=== PATIENT | female | born 1960 | race Caucasian/White ===

== ENCOUNTER 2018-01-25 23:12 | Inpatient (IN) | payer OTHER ==
[~2018-01-25] VITALS: Ht 170.2 cm; Wt 174.6 kg
--- NOTE | 2018-01-25 23:43 | ED GI/GU/ABDOMINAL COMPLAINT ---
History of Present Illness General Chief Complaint: Abdominal Pain/Flank Pain Stated Complaint: ABD PAIN, VOMITING, DIABETIC, SUGAR IS 280 PE Source: patient Exam Limitations: no limitations Vital Signs & Intake/Output Vital Signs & Intake/Output Vital Signs Date Time Temp Pulse Resp B/P B/P Pulse O2 O2 Flow FiO2 Mean Ox Delivery Rate 01/25 2322 99.5 113 24 163/76 96 ED Intake and Output 01/26 0000 01/25 1200 Intake Total Output Total Balance Patient 385 lb Weight Weight Reported by Patient Measurement Method Allergies Coded Allergies: adhesive (REDNESS PER PT 01/25/18) morphine (SENSITIVE PER PT TO STOMACH 01/25/18) Triage Note: PT PRESENTS TO THE ER C/O VOMITTING AND ABD PAIN.. PT STATES THAT SHE HAS BEEN VOMITTING SINCE YESTERDAY AFTERNOON.. PT STATES THAT SHE CANT EVEN KEEP FLUIDS DOWN.. PT STATES THAT HER VOMIT IS BILE.. PT ALSO C/O HX OF DM. PT STATES THAT HER BLOOD SUGAR AT HOME WAS 287. PT STATES THAT SHE HAS DIFF BREATHING AND PT IS C/O SOB ON EX.. PT STATES I FELL SO WEAK.. PT ALSO C/O ABD PAIN 12/16 AND PER PT THE PAIN IS WORSE WHEN SHE VOMITS.. PT STATES THAT SHE HAS NOT HAD A BM SINCE SUNDAY. Triage Nurses Notes Reviewed? yes ? n Is pt currently ? No Onset: Gradual Duration: day(s): Timing: recent history Location: generalized abdomen Radiation: no radiation Modifying Factors: Worsens With: vomiting. Associated Symptoms: abdominal pain, nausea/vomiting HPI: 57 yo woman h/o diabetes, htn, obesity presents with abdominal pain and bilious vomiting that began yesterday. "Everything I drink, it just comes right back up." She notes a watery stool yesterday, and last passed flatus approximately 7-8 hours ago. She notes tactile temperatures. She has no dysuria, cough, chest pain, dyspnea. She is otherwise well. Past History Travel History Traveled to [place] past 21 day No Medical History Any Pertinent Medical History? see below for history Cardiovascular: hypertension, HLD Respiratory: bronchitis, obstructive sleep apnea, pneumonia, pulmonary hypertension Gastrointestinal: GERD Musculoskeletal: rheumatoid arthritis Endocrine: diabetes Blood Disorders: anemia Surgical History Surgical History: cholecystectomy Psychosocial History What is your primary language Malian Tobacco Use: Never used Family History Hx Contributory? No Review of Systems Review of Systems Constitutional: Reports: no symptoms. EENTM: Reports: no symptoms. Respiratory: Reports: no symptoms. Cardiovascular: Reports: no symptoms. GI: Reports: no symptoms. Genitourinary: Reports: no symptoms. Musculoskeletal: Reports: no symptoms. Skin: Reports: no symptoms. Neurological/Psychological: Reports: no symptoms. Hematologic/Endocrine: Reports: no symptoms. Immunologic/Allergic: Reports: no symptoms. All Other Systems: Reviewed and Negative Physical Exam Physical Exam General Appearance: well developed/nourished, mild distress Head: atraumatic, normal appearance Eyes: Bilateral: normal appearance. Ears, Nose, Throat, Mouth: hearing grossly normal, moist mucous membrane Neck: normal inspection, supple, full range of motion Respiratory: normal breath sounds, chest non-tender, no respiratory distress, quiet respiration, lungs clear Cardiovascular: regular rate/rhythm Gastrointestinal: soft, obese, diminished bowel sounds Back: normal inspection, normal range of motion Extremities: normal range of motion Neurologic/Psych: no motor/sensory deficits, awake, alert, oriented x 3 Skin: intact, normal color, warm/dry Core Measures ACS in differential dx? No Sepsis Present: No Sepsis Focused Exam Completed? No Progress Differential Diagnosis: bowel obstruction, gastritis, hepatitis Plan of Care: Orders Procedure Date/time Status Nothing by Mouth 01/26 B Active Saline Lock 01/26 137 Active Misc Message 01/26 137 Active ED Holding Orders 01/26 137 Active Admit to inpatient 01/26 137 Active Vital Signs 01/26 137 Active Code Status 01/26 137 Active Add-on Test (ER Only) 01/26 0115 Active TRIGLYCERIDES 01/25 2349 Complete ETHANOL 01/25 2349 Complete TROPONIN LEVEL 01/25 2324 Complete LIPASE 01/25 232 Complete HEPATIC FUNCTION PANEL 01/25 232 Complete CBC WITHOUT DIFFERENTIAL 01/25 232 Complete BASIC METABOLIC PANEL 01/25 232 Complete AMYLASE 01/25 2324 Complete EKG 01/25 2324 Active EKG 01/25 2324 Active Current Medications Sig/Jayne Start time Last Medication Dose Stop Time Status Admin Sodium Chloride 1,000 ML BOLUS ONE 01/26 0045 AC 01/26 (Normal Saline 0.9%) 01/26 0144 0102 Laboratory Tests 01/25/18 2349: Anion Gap 15, Estimated GFR > 60, BUN/Creatinine Ratio 16.0, Glucose 247 H, Calcium 9.4, Total Bilirubin 0.8, Direct Bilirubin 0.1, AST 26, ALT 35, Alkaline Phosphatase 100, Troponin I < 0.01, Total Protein 6.9, Albumin 4.0, Triglycerides 67, Amylase 72, Lipase 829 H, CBC w Diff MAN DIFF ORDERED, RBC 5.28, MCV 76.6 L, MCH 25.4 L, MCHC 33.1, RDW 15.4 H, MPV 9.2, Gran % 89.6 H, Lymphocytes % 4.8 L, Monocytes % 5.3, Eosinophils % 0.3, Basophils % 0, Absolute Granulocytes 13.7 H, Absolute Lymphocytes 0.7 L, Absolute Monocytes 0.8 H, Absolute Eosinophils 0, Absolute Basophils 0, Platelet Estimate ADEQUATE , Normocytic RBCs VERIFIED, Normochromic RBCs VERIFIED, Serum Alcohol < 10.0 Diagnostic Imaging: Viewed by Me: CT Scan. Discussed w/RAD: CT Scan. Radiology Impression: PATIENT: FRANCA ESPINOZA PRESENT AGE: 57 PATIENT ACCOUNT NO: [id number] : 62 LOCATION: [facility] ORDERING PHYSICIAN: Bora Vásquez MD SERVICE DATE: 01/25/18 EXAM TYPE: CAT - CT ABD & PELVIS W/O IV CONTRAS EXAMINATION: CT ABDOMEN AND PELVIS WITHOUT CONTRAST CLINICAL INFORMATION: Abdominal pain, vomiting COMPARISON: 06/08/2014 TECHNIQUE: Multidetector volumetric imaging was performed from the superior aspect of the liver through the pubic symphysis. Sagittal and coronal reformatted images were obtained on the technologist's workstation. DLP: 1635.40 mGy-cm FINDINGS: LUNG BASES: There is linear left basilar atelectasis. LIVER, GALLBLADDER, AND BILIARY TREE: The liver is enlarged, measuring approximately 22 cm in craniocaudal dimension. No focal hepatic lesion or biliary ductal dilatation is identified. Patient is status post cholecystectomy. PANCREAS: There is mild stranding adjacent to the distal pancreas, raising suspicion for pancreatitis. SPLEEN: Unremarkable. ADRENAL GLANDS: Unremarkable. KIDNEYS AND URETERS: The kidneys are normal in size, shape, and attenuation. No hydronephrosis, hydroureter, or calculi seen. No perinephric stranding. BLADDER: Unremarkable. GASTROINTESTINAL TRACT: Colonic diverticulosis is noted. The small and large bowel are otherwise unremarkable without evidence of obstruction or pericolonic inflammatory change. The appendix is unremarkable. No free fluid or free air is seen. ABDOMINAL WALL: No significant hernia is appreciated. LYMPH NODES: Normal. VASCULAR: Unremarkable. PELVIC VISCERA: Unremarkable. OSSEOUS STRUCTURES: Degenerative changes are noted in the spine. IMPRESSION: 1. Mild stranding adjacent to the distal pancreas, suspicious for pancreatitis. 2. Hepatomegaly. 3. Colonic diverticulosis. DICTATED BY: Bud Day MD DATE/ TIME DICTATED:01/26/1818 WEIGHMASTER LEAD:JUAN DATE/TIME TRANSCRIBED: 01/26/1818 CONFIDENTIAL, DO NOT COPY WITHOUT APPROPRIATE AUTHORIZATION. < Electronically signed in Other Vendor System> SIGNED BY: Bud Day MD 01/26/18 003 Initial ED EKG: nsr w/pac's, no acute changes Departure Departure Disposition: HOME OR SELF CARE Condition: Stable Clinical Impression Primary Impression: Abdominal pain Referrals: Jarad Galicia MD (PCP/Family) Departure Forms: Customer Survey General Discharge Information Admission Note Spoke With: Medardo Hdz MD Documentation of Exam: Documentation of any treatments & extenuating circumstances including Concerns Regarding Discharge (functional status, medication knowledge or non-compliance, living conditions, etc.) that warrant an admission rather than observation: pt with unrelenting vomiting in the context of ct scan and lab evidence of pancreatitis... merits iv fluids, bowel rest, supportive medications. ED Attending Observation Initial Observation Note: I have seen and personally examined FRANCA ESPINOZA on 01/25/18 at 2347. I agree with the current emergency department documentation. The disposition (admission or discharge) is uncertain at this time, she needs a period of observation for the following reason(s): The ED Nurse caring for this patient has been personally informed as to what the patient is being observed for.
[2018-01-26 00:17] LABS: ABSOLUTE BASOPHIL COUNT 0 /CUMM (0.0-0.2); ABSOLUTE EOSINOPHIL COUNT 0 /CUMM (0.0-0.7); ABSOLUTE GRANULOCYTE CT 13.7 /CUMM (1.4-6.5); ABSOLUTE LYMPH COUNT 0.7 /CUMM (1.2-3.4); ABSOLUTE MONOCYTE COUNT 0.8 /CUMM (0.10-0.60); BASOPHIL % 0 % (0.0-2.0); EOSINOPHIL % 0.3 % (0-5); GRANULOCYTE % 89.6 % (42.2-75.2); HEMATOCRIT 40.4 % (37-47); MEAN CORPUSCULAR HGB 25.4 PG (27.0-31.0); MEAN CORPUSCULAR HGB CONC 33.1 G/DL (33.0-37.0); MEAN CORPUSCULAR VOLUME 76.6 FL (81.0-99.0); MEAN PLATELET VOLUME 9.2 FL (7.4-10.4); PLATELET COUNT 258 /CUMM (130-400); RBC DISTRIBUTION WIDTH 15.4 % (11.5-14.5); RED BLOOD CELL CT 5.28 /CUMM (4.20-5.40); WHITE BLOOD CELL COUNT 15.2 /CUMM (4.8-10.8)
--- NOTE | 2018-01-26 00:32 | CT SCAN REPORT ---
EXAMINATION: CT ABDOMEN AND PELVIS WITHOUT CONTRAST CLINICAL INFORMATION: Abdominal pain, vomiting COMPARISON: 06/08/2014 TECHNIQUE: Multidetector volumetric imaging was performed from the superior aspect of the liver through the pubic symphysis. Sagittal and coronal reformatted images were obtained on the technologist's workstation. DLP: 1635.40 mGy-cm FINDINGS: LUNG BASES: There is linear left basilar atelectasis. LIVER, GALLBLADDER, AND BILIARY TREE: The liver is enlarged, measuring approximately 22 cm in craniocaudal dimension. No focal hepatic lesion or biliary ductal dilatation is identified. Patient is status post cholecystectomy. PANCREAS: There is mild stranding adjacent to the distal pancreas, raising suspicion for pancreatitis. SPLEEN: Unremarkable. ADRENAL GLANDS: Unremarkable. KIDNEYS AND URETERS: The kidneys are normal in size, shape, and attenuation. No hydronephrosis, hydroureter, or calculi seen. No perinephric stranding. BLADDER: Unremarkable. GASTROINTESTINAL TRACT: Colonic diverticulosis is noted. The small and large bowel are otherwise unremarkable without evidence of obstruction or pericolonic inflammatory change. The appendix is unremarkable. No free fluid or free air is seen. ABDOMINAL WALL: No significant hernia is appreciated. LYMPH NODES: Normal. VASCULAR: Unremarkable. PELVIC VISCERA: Unremarkable. OSSEOUS STRUCTURES: Degenerative changes are noted in the spine. IMPRESSION: 1. Mild stranding adjacent to the distal pancreas, suspicious for pancreatitis. 2. Hepatomegaly. 3. Colonic diverticulosis.
--- NOTE | 2018-01-26 02:12 | History & Physical ---
Adelina DE LA TORRE,Allan 01/26/18 0210: General Information and HPI MD Statement: I have seen and personally examined FRANCA ESPINOZA and documented this H&P. The patient is a 57 year old F who presented with a patient stated chief complaint of [pancreatitis]. Source of Information: patient, old records Exam Limitations: no limitations History of Present Illness: Patient is a 57-year-old female with significant past medical history of rheumatoid arthritis, diabetes, sleep apnea on CPAP, menopausal, presented with chief complaints of nausea and vomiting since last 24 hours. Patient was relatively alright around 1 day ago. Yesterday around 1230,she started throwing up. She was not able to tolerate any kind of liquids and solid. At midnight she started having pain in her belly, which was located in the epigastrium, generalized, intermittent, sometimes radiating to back, associated with bloated feeling, relieved by vomiting. Denies any fever, chills, trauma, sick contact, any new medication, using any wcxq-cjv-nuhhnal medication, presents of blood in the vomitus, weight loss. She also had low-grade fever 100 - 101. She did not took any medication She was feeling very weak, and color of her vomitus become more greenish and bilious, so she was here. She had history of cholecystectomy(1991; secondary to cholecystitis). She had family history of pancreatic cancer in her mother, hypertriglyceridemia in all her family, she was in [facility], which can possibly cause pancreatitis.She recently had an allergic reaction secondary to morbid in her air conditioner but did not require any steroid medication. Past medical history - GERD -last 10 years on Protonix. Intermittent constipation. L4 L5 S1, S2. Discectomy/laminectomy 2 times Bilateral knee replacement. Vestibular migraine. Rheumatoid arthritis since last 5 years on hydroxychloroquine. Diabetes mellitus since 2005. Her HbA1c 7.2 Sleep apnea on CPAP since last 20 years, complicated by secondary pulmonary hypertension History of abdominal hernia unrepaired. History of removal of fibroid. Menopause since 2 years. History of bronchitis, treated with corticosteroid(August 2016) Family history-mother/ elderly sister has history of rheumatoid arthritis, mother with history of pancreatic cancer at the age of 79, brother with history of COPD Past History Travel History Traveled to [place] past 21 day No Medical History Cardiovascular: hypertension, HLD Respiratory: bronchitis, obstructive sleep apnea, pneumonia, pulmonary hypertension Gastrointestinal: GERD Musculoskeletal: rheumatoid arthritis Endocrine: diabetes Blood Disorders: anemia Surgical History Surgical History: cholecystectomy Review of Systems Review of Systems Constitutional: Reports: fever, malaise, weakness. GI: Reports: abdominal pain, bloating, distention, nausea, vomiting. Musculoskeletal: Reports: back pain, joint pain. Exam & Diagnostic Data Last 24 Hrs of Vital Signs/I&O Vital Signs Date Time Temp Pulse Resp B/P B/P Pulse O2 O2 Flow FiO2 Mean Ox Delivery Rate 01/26 0327 Room Air 01/26 0144 98.7 88 18 168/84 94 Room Air 01/25 2322 99.5 113 24 163/76 96 Intake & Output 01/26 0800 01/26 0000 01/25 1600 Intake Total Output Total Balance Patient 174.633 kg 174.633 kg Weight Weight Reported by Patient Reported by Patient Measurement Method Physical Exam General Appearance Alert, Oriented X3, Cooperative, No Acute Distress Skin No Rashes, No Breakdown, No Significant Lesion HEENT Atraumatic, PERRLA, EOMI Neck No JVD Cardiovascular Normal S1, Normal S2 Lungs Clear to Auscultation, Normal Air Movement Abdomen Normal Bowel Sounds, Soft, mild deep tenderness in upper abdoman Neurological Normal Gait, Normal Speech Extremities No Clubbing, No Cyanosis, No Edema Vascular Normal Pulses, Pulses Symmetrical Last 24 Hrs of Labs/Luis: Laboratory Tests 01/25/18 2349: Anion Gap 15, Estimated GFR > 60, BUN/Creatinine Ratio 16.0, Glucose 247 H, Lactic Acid 1.2, Calcium 9.4, Total Bilirubin 0.8, Direct Bilirubin 0.1, AST 26, ALT 35, Alkaline Phosphatase 100, Troponin I < 0.01, Total Protein 6.9, Albumin 4.0, Triglycerides 67, Cholesterol 150, LDL Cholesterol, Calc 66, HDL Cholesterol 71 H, Cholesterol/HDL Ratio 2, Amylase 72, Lipase 829 H, CBC w Diff MAN DIFF ORDERED, RBC 5.28, MCV 76.6 L, MCH 25.4 L, MCHC 33.1, RDW 15.4 H, MPV 9.2, Gran % 89.6 H, Lymphocytes % 4.8 L, Monocytes % 5.3, Eosinophils % 0.3, Basophils % 0, Absolute Granulocytes 13.7 H, Absolute Lymphocytes 0.7 L, Absolute Monocytes 0.8 H, Absolute Eosinophils 0, Absolute Basophils 0, Platelet Estimate ADEQUATE, Normocytic RBCs VERIFIED, Normochromic RBCs VERIFIED , Serum Alcohol < 10.0 Assessment/Plan Assessment: Patient is a 57-year-old female with significant past medical history of rheumatoid arthritis, diabetes, sleep apnea on CPAP, menopausal, presented with chief complaints of nausea and vomiting since last 24 hours. Vital signs at the time of admission -temperature 99.5, pulse 113, respiratory rate 24, blood pressure 160/76, SPO2 96% on room air. Blood workup-WBC 15.2, RBC 5.28, hemoglobin 13.4, hematocrit 40.5, MCV 76.6, platelet count 258, granulocyte 89.6, lymphocyte 4.8, sodium 135, potassium 4.5, chloride 95, anion gap 15, BUN 8, creatinine 0.5, glucose 247, calcium 9.4, total bilirubin 0.8, direct bilirubin 0.1, AST 26, ALT 35, troponin I less than 0.01, amylase 72, lipase 829, serum alcohol less than 10. CT abdomen and pelvis- 1. Mild stranding adjacent to the distal pancreas, suspicious for pancreatitis. 2. Hepatomegaly. 3. Colonic diverticulosis. Assessment and plan - Mild acute pancreatitis - * We'll keep patient nothing by mouth * IV fluids normal saline 100 mL per hour. * Pain medication according to the pain scale -acetaminophen 1 gram IV for mild pain, Dilaudid 1 milligram every 6 P for moderate pain, and we will consider morphine if needed for severe pain. * Blood sugar charting every 6 hourly. * NovoLog according to the sliding scale. * Keep head end of the bed elevated. * Inj pantoprazole 40 mgs IV OD * Injection Zofran 4 milligrams every 6 P * We will repeat EKG in the morning * we will follow lipid profile, lactic acid Obstructive sleep apnea on CPAP - * Continue CPAP over the night Type 2 diabetes- * Blood sugar charting every 6 hourly. * NovoLog according to the sliding scale. Chronic medical condition-hypertension, hyperlipidemia, rheumatoid arthritis * We will hold the medication for now and will restart from morning. Morbid obesity - * We'll discuss about diet after recovery CODE STATUS-full code. Diet-nothing by mouth DVT prophylaxis-ALP S As Ranked By This Provider Problem List: 1. Abdominal pain 2. Pancreatitis Core Measures/Misc (03/25) Acute Coronary Syndrome ACS Diagnosis: No Congestive Heart Failure Congestive Heart Failure Diagnosis No Cerebrovascular Accident CVA/TIA Diagnosis: No VTE (View Protocol) VTE Risk Factors Age>40 No Mechanical VTE Prophylaxis d/t N/A MechProphylax Ordered No VTE Pharm Prophylaxis d/t NA PharmProphylax ordered Sepsis (View protocol) Sepsis Present: No If YES complete Sepsis Event Note If YES complete Sepsis Event Note Antwon Yeager 01/26/18 0520: General Information and HPI MD Statement: I have seen and personally examined FRANCA ESPINOZA and documented this H&P. The patient is a 57 year old F who presented with a patient stated chief complaint of [pancreatitis]. Source of Information: patient, family Exam Limitations: no limitations History of Present Illness: Patient is a 57-year-old female with past medical history of RA, diabetes, sleep apnea on CPAP, menopausal, presented with chief complaints of nausea and vomiting since last 24 hours. in her air conditioner but did not require any steroid medication. Patient wasin normal state of health until yesterday around 1230 when she began vomiting. She was not able to tolerate any kind of liquids and solid. At midnight she started having pain in her abdomen, which was located in the epigastrium, generalized, intermittent, sometimes radiating to back, associated with bloated feeling, relieved by vomiting. Denies any fever, chills, trauma, sick contact, any new medication, using any lvsd-dmm-lpithzn medication, presents of blood in the vomitus, weight loss. She also had low-grade fever 100 - 101. She did not took any medication She was feeling very weak, and color of her vomitus become more greenish and bilious, so she was sent to [facility]. Allergies/Medications Allergies: Coded Allergies: adhesive (REDNESS PER PT 01/25/18) morphine (SENSITIVE PER PT TO STOMACH 01/25/18) Compliance With Home Meds: UNKNOWN Past History Travel History Traveled to [place] past 21 day No Medical History Neurological: migraine (vestibular) EENT: NONE Cardiovascular: hypertension Respiratory: bronchitis, obstructive sleep apnea, pneumonia, pulmonary hypertension Gastrointestinal: constipation (intermittent), GERD, abdominal hernia Hepatic: NONE Renal: NONE Musculoskeletal: disk herniation (surgery), rheumatoid arthritis, knee replacement, bilateral Psychiatric: NONE Endocrine: diabetes Blood Disorders: anemia 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 GI: Reports: abdominal pain, bloating, distention, nausea, vomiting. Musculoskeletal: Reports: back pain, joint pain. Exam & Diagnostic Data Last 24 Hrs of Vital Signs/I&O Vital Signs Date Time Temp Pulse Resp B/P B/P Pulse O2 O2 Flow FiO2 Mean Ox Delivery Rate 01/26 0410 99.2 104 20 165/89 95 01/26 0327 Room Air 01/26 0144 98.7 88 18 168/84 94 Room Air 01/25 2322 99.5 113 24 163/76 96 Intake & Output 01/26 0800 01/26 0000 01/25 1600 Intake Total Output Total Balance Patient 385 lb 385 lb Weight Weight Reported by Patient Reported by Patient Measurement Method Physical Exam General Appearance Alert, Oriented X3, Cooperative, No Acute Distress Skin No Rashes, No Breakdown, No Significant Lesion HEENT Atraumatic, PERRLA, EOMI Neck No JVD Cardiovascular Regular Rate, Normal S1, Normal S2 Lungs Clear to Auscultation, Normal Air Movement Abdomen Normal Bowel Sounds, Soft, mild deep tenderness in upper abdoman Neurological Normal Gait, Normal Speech Extremities No Clubbing, No Cyanosis, No Edema Vascular Normal Pulses, Pulses Symmetrical Last 24 Hrs of Labs/Luis: Laboratory Tests 01/25/18 2349: Anion Gap 15, Estimated GFR > 60, BUN/Creatinine Ratio 16.0, Glucose 247 H, Lactic Acid 1.2, Calcium 9.4, Total Bilirubin 0.8, Direct Bilirubin 0.1, AST 26, ALT 35, Alkaline Phosphatase 100, Troponin I < 0.01, Total Protein 6.9, Albumin 4.0, Triglycerides 67, Cholesterol 150, LDL Cholesterol, Calc 66, HDL Cholesterol 71 H, Cholesterol/HDL Ratio 2, Amylase 72, Lipase 829 H, CBC w Diff MAN DIFF ORDERED, RBC 5.28, MCV 76.6 L, MCH 25.4 L, MCHC 33.1, RDW 15.4 H, MPV 9.2, Gran % 89.6 H, Lymphocytes % 4.8 L, Monocytes % 5.3, Eosinophils % 0.3, Basophils % 0, Absolute Granulocytes 13.7 H, Absolute Lymphocytes 0.7 L, Absolute Monocytes 0.8 H, Absolute Eosinophils 0, Absolute Basophils 0, Platelet Estimate ADEQUATE, Normocytic RBCs VERIFIED, Normochromic RBCs VERIFIED , Serum Alcohol < 10.0 Assessment/Plan Assessment: Patient is a 57-year-old female with significant past medical history of rheumatoid arthritis, diabetes, sleep apnea on CPAP, menopausal, presented with chief complaints of nausea and vomiting since last 24 hours. Problem list/plan: Pancreatitis -Patient is NPO -IV normal saline 100ml/hr -Pain according to pathway -Vitals and I/O per protocol -Accuchecks q4hrs -Novolog according to npo sliding scale -Elevate head of the bed -Pantroprozole 40 mg IV daily -zofran 4mg q6p -follow lipid provile, lactic acid LORI -continue home CPAP treatment Type 2 diabetes -as above, Accuchcks q6hr and novolog on sliding scale Chronic conditions - RA, HTN, HLD -Hold meds for now, restart in morning DVT Prophylaxis: ALPS NPO currently Patient is full code As Ranked By This Provider Problem List: 1. Pancreatitis 2. Abdominal pain Core Measures/Misc (03/25) Acute Coronary Syndrome ACS Diagnosis: No Congestive Heart Failure Congestive Heart Failure Diagnosis No Cerebrovascular Accident CVA/TIA Diagnosis: No VTE (View Protocol) VTE Risk Factors Age>40 No Mechanical VTE Prophylaxis d/t N/A MechProphylax Ordered No VTE Pharm Prophylaxis d/t NA PharmProphylax ordered Sepsis (View protocol) Sepsis Present: No If YES complete Sepsis Event Note If YES complete Sepsis Event Note [facility] 0546: General Information and HPI MD Statement: I have seen and personally examined FRANCA ESPINOZA and documented this H&P. The patient is a 57 year old F who presented with a patient stated chief complaint of []. Source of Information: patient Allergies/Medications Home Med list Albuterol Sulfate (Proair Hfa) 90 MCG HFA.AER.AD 2 PUF INH Q4-6 PRN PRN ASTHAMA (Reported) Budesonide (Pulmicort Flexhaler) 90 MCG AER.POW.BA 1 PUFF CLARE Q4 HRS NEEDED PRN ASTHAMA (Reported) Cetirizine HCl (Zyrtec) 10 MG TABLET 1 TAB PO DAILY ALLERGIES (Reported) Fish Oil/Borage/Flax/Om3,6,9#1 ([place] 3-6-9 1,200 MG Softgel) 1,200 MG CAPSULE 1 CAP PO DAILY SUPPLEMENTS (Reported) Hydroxychlorquine (Plaquenil) 200 MG TABLET 2 TAB PO BID RA (Reported) Insulin Detemir (Levemir Flextouch) 100 UNIT/ML (3 ML) INSULN.PEN 50 UNITS SC BID DM (Reported) Liraglutide (Victoza 2-Gordo) 0.6 MG/0.1 ML (18 MG/3 ML) PEN.INJCTR 1.2 UNIT SC QPM DM (Reported) Liraglutide (Victoza 2-Gordo) 0.6 MG/0.1 ML (18 MG/3 ML) PEN.INJCTR 1.8 UNITS SC QAM DM (Reported) Pantoprazole Sodium 40 MG TABLET.DR 1 TAB PO DAILY GERD (Reported) Ramipril (Altace) 10 MG CAPSULE 1 CAP PO DAILY HTN (Reported) Rosuvastatin Calcium (Crestor) 10 MG TABLET 1 TAB PO DAILY HL (Reported) Past History Medical History Neurological: migraine Cardiovascular: hypertension Respiratory: bronchitis, obstructive sleep apnea, pneumonia, pulmonary hypertension Gastrointestinal: constipation, GERD Musculoskeletal: disk herniation JEWEL BEARING GRINDER/Reproductive: fibroid Surgical History Surgical History: cholecystectomy Past Family/Social History Psychosocial History Smoking Status: Never Smoked ETOH Use: denies use Review of Systems Review of Systems Constitutional: Reports: see HPI. Exam & Diagnostic Data Last 24 Hrs of Vital Signs/I&O Vital Signs Date Time Temp Pulse Resp B/P B/P Pulse O2 O2 Flow FiO2 Mean Ox Delivery Rate 01/26 0410 99.2 104 20 165/89 95 01/26 0327 Room Air 01/26 0144 98.7 88 18 168/84 94 Room Air 01/25 2322 99.5 113 24 163/76 96 Intake & Output 01/26 0800 01/26 0000 01/25 1600 Intake Total Output Total Balance Patient 385 lb 385 lb Weight Weight Reported by Patient Reported by Patient Measurement Method Physical Exam General Appearance Alert, Oriented X3, Cooperative, No Acute Distress Skin No Rashes, No Breakdown, No Significant Lesion HEENT Atraumatic, PERRLA, EOMI Neck Supple, No JVD Cardiovascular Regular Rate, Normal S1, Normal S2 Lungs Clear to Auscultation, Normal Air Movement Abdomen Normal Bowel Sounds, Soft, mild deep tenderness in upper abdoman Neurological Normal Speech Extremities No Clubbing, No Cyanosis, No Edema Vascular Normal Pulses Last 24 Hrs of Labs/Luis: Laboratory Tests 01/25/18 2349: Anion Gap 15, Estimated GFR > 60, BUN/Creatinine Ratio 16.0, Glucose 247 H, Lactic Acid 1.2, Calcium 9.4, Total Bilirubin 0.8, Direct Bilirubin 0.1, AST 26, ALT 35, Alkaline Phosphatase 100, Troponin I < 0.01, Total Protein 6.9, Albumin 4.0, Triglycerides 67, Cholesterol 150, LDL Cholesterol, Calc 66, HDL Cholesterol 71 H, Cholesterol/HDL Ratio 2, Amylase 72, Lipase 829 H, CBC w Diff MAN DIFF ORDERED, RBC 5.28, MCV 76.6 L, MCH 25.4 L, MCHC 33.1, RDW 15.4 H, MPV 9.2, Gran % 89.6 H, Lymphocytes % 4.8 L, Monocytes % 5.3, Eosinophils % 0.3, Basophils % 0, Absolute Granulocytes 13.7 H, Absolute Lymphocytes 0.7 L, Absolute Monocytes 0.8 H, Absolute Eosinophils 0, Absolute Basophils 0, Platelet Estimate ADEQUATE, Normocytic RBCs VERIFIED, Normochromic RBCs VERIFIED , Serum Alcohol < 10.0 Core Measures/Misc (03/25) Sepsis (View protocol) If YES complete Sepsis Event Note If YES complete Sepsis Event Note Attending MD Review Statement Attending Statement Attending MD Statement: examined this patient, discuss w/resident/PA/[employer]AGE CHE[employer]ER, agreed w/resident/PA/[employer]AGE CHE[employer]KER, reviewed EMR data (avail), amended to note Attending Assessment/Plan: This patient is a 57-year-old white female with significant past medical history for obesity, rheumatoid arthritis, diabetes, sleep apnea on CPAP, menopausal, presented with chief complaints of nausea and vomiting since last 24 hours. She was not able to tolerate any kind of liquids and solid. At midnight she started having pain in her epigastrium, generalized, intermittent, sometimes radiating to back, associated with bloated feeling, relieved by vomiting. She also noted a low-grade fever 100 - 101. She was feeling very weak, and color of her vomitus became more greenish and bilious. Upon evaluation in the emergency department the patient was noted to have an elevated white blood cell count up to 15.2 and was afebrile. Lipase was found to be [address] scan of her abdomen and pelvis is suspicious for pancreatitis. The patients history is significant only for the addition of Victoza. She had a cholecystectomy, normal triglycerides and does not drink alcohol. The patient is admitted for pancreatitis and an endocrine consult has been placed. Flaco DE LA TORRE,Amir 01/26/18 1431: Core Measures/Misc (03/25) Sepsis (View protocol) If YES complete Sepsis Event Note If YES complete Sepsis Event Note Attending MD Review Statement Attending Statement Attending MD Statement: examined this patient, discuss w/resident/PA/C[employer]AGE CHE[employer]KER, agreed w/resident/PA/C[employer]AGE CHE[employer]KER, discussed with family, reviewed EMR data (avail), discussed with nursing
[2018-01-26] MEDS ORDERED: VICTOZA 2-0.6 MG/0.1 SC ×2 (03:53→03:54)
[2018-01-26] MEDS ORDERED: LEVEMIR FL100 UNIT/1 SC (03:55)
[2018-01-26] MEDS ORDERED: ALTACE10 M2 PO (03:55)
[2018-01-26] MEDS ORDERED: CRESTOR10 M1 PO (03:55)
[2018-01-26] MEDS ORDERED: PANTOPRAZOLE SO40 M1 PO (03:56)
[2018-01-26] MEDS ORDERED: ZYRTEC10 M3 PO (03:57)
[2018-01-26] MEDS ORDERED: PLAQUENIL200 M1 PO (03:57)
[2018-01-26] MEDS ORDERED: PROAIR HFA8.5 GM INH (03:58)
[2018-01-26] MEDS ORDERED: PULMICORT FLEX90 MCG NAS (03:59)
[2018-01-26] MEDS ORDERED: OMEGA 3-6-9 11200 MG PO (04:00)
[2018-01-26 04:10] VITALS: BP 165/89
[2018-01-26 08:41] LABS: ABSOLUTE BASOPHIL COUNT 0 /CUMM (0.0-0.2); ABSOLUTE EOSINOPHIL COUNT 0 /CUMM (0.0-0.7); ABSOLUTE GRANULOCYTE CT 12.7 /CUMM (1.4-6.5); ABSOLUTE LYMPH COUNT 0.9 /CUMM (1.2-3.4); ABSOLUTE MONOCYTE COUNT 0.9 /CUMM (0.10-0.60); BASOPHIL % 0.1 % (0.0-2.0); EOSINOPHIL % 0.2 % (0-5); GRANULOCYTE % 87.2 % (42.2-75.2); HEMATOCRIT 38.1 % (37-47); MEAN CORPUSCULAR HGB 25.1 PG (27.0-31.0); MEAN CORPUSCULAR HGB CONC 32.7 G/DL (33.0-37.0); MEAN CORPUSCULAR VOLUME 76.9 FL (81.0-99.0); MEAN PLATELET VOLUME 9.2 FL (7.4-10.4); PLATELET COUNT 252 /CUMM (130-400); RBC DISTRIBUTION WIDTH 15.1 % (11.5-14.5); RED BLOOD CELL CT 4.96 /CUMM (4.20-5.40); WHITE BLOOD CELL COUNT 14.5 /CUMM (4.8-10.8)
[2018-01-26 14:29] VITALS: BP 136/84
--- NOTE | 2018-01-26 14:45 | Cons- Endocrinology ---
General Information and HPI Consulting Request Date of Consult: 01/26/18 Requested By: sheng team Reason for Consult: management of DM type 2, uncontrolled Source of Information: patient, family, old records Exam Limitations: no limitations History of Present Illness: 57-year-old female with past medical history significant for rheumatoid arthritis, diabetes type 2, sleep apnea on CPAP, morbidly obese, presented with nausea and vomiting x 24 hours. Blood work showed lipase 829. She was diagnosed with DM type 2 in 2005 and has had hx of metformin intolerance. 6 years ago, she was put on insulin. Over past 3 years, she has been Levemir 50 units twice a day, Victoza 1.8 mg and 1.2 mg at dinner time. As per patient, her weight has been stable and her HbA1c has been less than 7%. She had history of cholecystectomy(1991; secondary to cholecystitis). She had family history of pancreatic cancer in her mother. In hospital, she was placed on NS at 100 ml/hour, Novolog coverage every 6 hours. Her FSGs were 258, 259 and 249. She still feels bloated and vomited again at around lunch time. Allergies/Medications Allergies: Coded Allergies: adhesive (REDNESS PER PT 01/25/18) morphine (SENSITIVE PER PT TO STOMACH 01/25/18) Home Med List: Albuterol Sulfate (Proair Hfa) 90 MCG HFA.AER.AD 2 PUF INH Q4-6 PRN PRN ASTHAMA (Reported) Budesonide (Pulmicort Flexhaler) 90 MCG AER.POW.BA 1 PUFF CLARE Q4 HRS NEEDED PRN ASTHAMA (Reported) Cetirizine HCl (Zyrtec) 10 MG TABLET 1 TAB PO DAILY ALLERGIES (Reported) Fish Oil/Borage/Flax/Om3,6,9#1 (Pheba 3-6-9 1,200 MG Softgel) 1,200 MG CAPSULE 1 CAP PO DAILY SUPPLEMENTS (Reported) Hydroxychlorquine (Plaquenil) 200 MG TABLET 2 TAB PO BID RA (Reported) Insulin Detemir (Levemir Flextouch) 100 UNIT/ML (3 ML) INSULN.PEN 50 UNITS SC BID DM (Reported) Liraglutide (Victoza 2-Gordo) 0.6 MG/0.1 ML (18 MG/3 ML) PEN.INJCTR 1.2 UNIT SC QPM DM (Reported) Liraglutide (Victoza 2-Gordo) 0.6 MG/0.1 ML (18 MG/3 ML) PEN.INJCTR 1.8 UNITS SC QAM DM (Reported) Pantoprazole Sodium 40 MG TABLET.DR 1 TAB PO DAILY GERD (Reported) Ramipril (Altace) 10 MG CAPSULE 1 CAP PO DAILY HTN (Reported) Rosuvastatin Calcium (Crestor) 10 MG TABLET 1 TAB PO DAILY HL (Reported) Review of Systems Review of Systems Constitutional: Reports: see HPI. Cardiovascular: Denies: chest pain, palpitations. GI: Reports: abdominal pain, nausea, vomiting. Hematologic/Endocrine: Denies: polyuria, polydipsia. 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 Home Services at Home: None Smoking Status: Never Smoked ETOH Use: denies use Exam & Diagnostic Data Last 24 Hrs of Vital Signs/I&O Vital Signs Date Time Temp Pulse Resp B/P B/P Pulse O2 O2 Flow FiO2 Mean Ox Delivery Rate 01/26 1429 98.9 100 20 136/84 97 Room Air 01/26 0800 CPAP 01/26 0410 99.2 104 20 165/89 95 01/26 0327 Room Air 01/26 0144 98.7 88 18 168/84 94 Room Air 01/25 2322 99.5 113 24 163/76 96 Intake & Output 01/26 1600 01/26 0800 01/26 0000 Intake Total 700 400 Output Total 560 Balance 140 400 Intake, IV 700 400 Intake, Oral 0 Output, 10 Emesis Output, Urine 550 Patient 385 lb 385 lb Weight Weight Reported by Patient Reported by Patient Measurement Method Physical Exam General Appearance: obese Neck: difficult to palpate her thyroid gland due to her body habitus Respiratory: decreased breath sounds, respiratory distress (at bases) Cardiovascular: regular rate/rhythm Gastrointestinal: soft, distention Extremities: no edema Labs/Luis Results: Laboratory Tests 01/26 01/25 0650 2349 Chemistry Sodium (137 - 145 mmol/L) 136 L 135 L Potassium (3.5 - 5.1 mmol/L) 4.5 4.5 Chloride (98 - 107 mmol/L) 98 95 L Carbon Dioxide (22 - 30 mmol/L) 25 25 Anion Gap (5 - 16) 12 15 BUN (7 - 17 mg/dL) 9 8 Creatinine (0.5 - 1.0 mg/dL) 0.4 L 0.5 Estimated GFR (>60 ml/min) > 60 > 60 BUN/Creatinine Ratio (7 - 25 %) 22.5 16.0 Glucose (65 - 99 mg/dL) 247 H Lactic Acid (0.7 - 2.1 mmol/L) 1.2 Calcium (8.4 - 10.2 mg/dL) 9.4 Total Bilirubin (0.2 - 1.3 mg/dL) 0.8 Direct Bilirubin (< 0.4 mg/dL) 0.1 AST (14 - 36 U/L) 26 ALT (9 - 52 U/L) 35 Alkaline Phosphatase (<127 U/L) 100 Troponin I (< 0.11 ng/ml) < 0.01 Total Protein (6.3 - 8.2 g/dL) 6.9 Albumin (3.5 - 5.0 g/dL) 4.0 Triglycerides (<150 mg/dL) 67 Cholesterol (<200 MG/DL) 150 LDL Cholesterol, Calc (65 - 129 mg/dL) 66 HDL Cholesterol (40 - 60 mg/dL) 71 H Cholesterol/HDL Ratio (0.00 - 4.23 %) 2 Amylase (30 - 110 U/L) 72 Lipase (23 - 300 U/L) 829 H Hematology CBC w Diff NO MAN DIFF REQ MAN DIFF ORDERED WBC (4.8 - 10.8 /CUMM) 14.5 H 15.2 H RBC (4.20 - 5.40 /CUMM) 4.96 5.28 Hgb (12.0 - 16.0 G/DL) 12.5 13.4 Hct (37 - 47 %) 38.1 40.4 MCV (81.0 - 99.0 FL) 76.9 L 76.6 L MCH (27.0 - 31.0 PG) 25.1 L 25.4 L MCHC (33.0 - 37.0 G/DL) 32.7 L 33.1 RDW (11.5 - 14.5 %) 15.1 H 15.4 H Plt Count (130 - 400 /CUMM) 252 258 MPV (7.4 - 10.4 FL) 9.2 9.2 Gran % (42.2 - 75.2 %) 87.2 H 89.6 H Lymphocytes % (20.5 - 51.1 %) 6.1 L 4.8 L Monocytes % (1.7 - 9.3 %) 6.4 5.3 Eosinophils % (0 - 5 %) 0.2 0.3 Basophils % (0.0 - 2.0 %) 0.1 0 Absolute Granulocytes (1.4 - 6.5 /CUMM) 12.7 H 13.7 H Absolute Lymphocytes (1.2 - 3.4 /CUMM) 0.9 L 0.7 L Absolute Monocytes (0.10 - 0.60 /CUMM) 0.9 H 0.8 H Absolute Eosinophils (0.0 - 0.7 /CUMM) 0 0 Absolute Basophils (0.0 - 0.2 /CUMM) 0 0 Platelet Estimate (ADEQUATE) ADEQUATE Normocytic RBCs VERIFIED Normochromic RBCs VERIFIED Toxicology Serum Alcohol (<10 MG/DL) < 10.0 Assessment/Plan Assessment/Plan 57-year-old female with past medical history significant for rheumatoid arthritis, diabetes type 2, sleep apnea on CPAP, morbidly obese, presented with nausea and vomiting x 24 hours. She was admitted for acute pancreatitis ? due to GLP-1 analog. Plan: 1. continue NPO and IVF; 2. start Levemir 20 units twice a day; 3. adjust Novolog coverage every 4 hours; detail see the inpatient DM order; 4. monitor FSGs, vital signs, In/OUt and electrolytes; 5. check TFT and HbA1c will follow. Inpatient Diabetes Orders Every 4 Hours: Bolus Insulin: Novolog < 80 mg/dl: no coverage 80-100 mg/dl: no coverage 101-120 mg/dl: no coverage 121-150 mg/dl: no coverage 151-200 mg/dl: 2 units 201-250 mg/dl: 4 units 251-300 mg/dl: 6 units 301-350 mg/dl: 8 units 351-400 mg/dl: 10 units > 400 mg/dl: 12 units Consult Acknowledgment - Thank you for your consult request.
[2018-01-26 21:33] VITALS: BP 140/79
[2018-01-27 06:21] VITALS: BP 138/80
--- NOTE | 2018-01-27 10:58 | PN- Diabetes ---
Assessment/Plan Diabetes Assessment: 57-year-old female with past medical history significant for rheumatoid arthritis, diabetes type 2, sleep apnea on CPAP, morbidly obese, presented with nausea and vomiting x 24 hours. Blood work showed lipase 829. She was diagnosed with DM type 2 in 2005 and has had hx of metformin intolerance. 6 years ago, she was put on insulin. Over past 3 years, she has been Levemir 50 units twice a day, Victoza 1.8 mg and 1.2 mg at dinner time. As per patient, her weight has been stable and her HbA1c has been less than 7%. She had history of cholecystectomy(1991; secondary to cholecystitis). She had family history of pancreatic cancer in her mother. In hospital, she was placed on NS at 100 ml/hour, Novolog coverage every 4 hours and Levemir 20 units twice a day. Her FSGs were 192, 200, 202 and 177. Since 3 pm, she hasn't vomitted. She feels better this morning. At this point, she is still kept NPO except for ice chips. Plan: 1. increase Levemir to 26 units twice a day; 2. continue the current Novolog coverage every 4 hours; 3. monitor FSGs and electrolytes; 4. if she will be on clear liquid diet, please order clear liquid diet w/o concentrated sweets. will follow. Subjective Subjective: She feels better this morning. Objective Last 24 Hrs of Vital Signs/I&O Vital Signs Date Time Temp Pulse Resp B/P B/P Pulse O2 O2 Flow FiO2 Mean Ox Delivery Rate 01/27 0814 97 138/80 01/27 0621 98.3 97 20 138/80 94 01/27 0259 98.4 01/27 0200 100.8 01/27 0157 98.6 01/27 0130 98.4 01/26 2133 100.8 113 20 140/79 94 Room Air 01/26 1429 98.9 100 20 136/84 97 Room Air Intake & Output 01/27 1600 01/27 0800 01/27 0000 Intake Total 800 400 Output Total Balance 800 400 Intake, IV 800 400 Intake, Oral 0 0 Findings Pertinent Lab/Luis Results: Laboratory Tests 01/27 0118 Urines Urine Color (YEL,AMB,STR) ORANG H Urine Clarity (CLEAR) CLEAR Urine pH (5.0 - 8.0) 6.0 Ur Specific [place] (1.001 - 1.035) >= 1.030 Urine Protein (NEG,<30 MG/DL) 30 H Urine Ketones (NEG) 40 H Urine Nitrite (NEG) NEG Urine Bilirubin (NEG) NEG@ICTO Urine Urobilinogen (0.1 - 1.0 EU/dl) 1.0 Ur Leukocyte Esterase (NEG) NEG Ur Microscopic SEDIMENT EXAMINED Urine RBC (0 - 5 /HPF) RARE Urine WBC (0 - 2 /HPF) 1-3 H Ur Epithelial Cells (NONE,FEW) FEW Urine Bacteria (NEG/NONE) FEW H Urine Mucus (FEW,NONE) MANY H Urine Hemoglobin (NEG) NEG Urine Glucose (N MG/DL) NEG
--- NOTE | 2018-01-27 11:29 | PN- Housestaff ---
See Addendum Subjective Follow-up For: Pancreatitis Subjective: Patient seen and examined at bedside with in room. Pt states she is in incredible pain, has never had this pain for. Patient states that she has been tolerating ice chips. Patient states that she thinks she could try to eat clear liquids, would like to try that tonight. Patient also states that she has not had any nausea or vomiting recently, only pain. During interview, patient became anxious, felt like she could not get air, had to be seated up and reassured. Denies fevers/chills/night sweats/chest pain/urinary symptoms/lower extremity edema Review of Systems Constitutional: Reports: see HPI. Objective Last 24 Hrs of Vital Signs/I&O Vital Signs Date Time Temp Pulse Resp B/P B/P Pulse O2 O2 Flow FiO2 Mean Ox Delivery Rate 01/27 0814 97 138/80 01/27 0621 98.3 97 20 138/80 94 01/27 0259 98.4 01/27 0200 100.8 01/27 0157 98.6 01/27 0130 98.4 01/26 2133 100.8 113 20 140/79 94 Room Air 01/26 1429 98.9 100 20 136/84 97 Room Air Intake & Output 01/27 1600 01/27 0800 01/27 0000 Intake Total 800 400 Output Total Balance 800 400 Intake, IV 800 400 Intake, Oral 0 0 Physical Exam General Appearance: Alert, Oriented X3, Cooperative, Mild Distress Skin: No Rashes Skin Temp/Moisture Exam: Warm/Dry Cardiovascular: Regular Rate, Normal S1, Normal S2 Lungs: Clear to Auscultation, Normal Air Movement Abdomen: midepigastrum tenderness, obese Neurological: Sensation Intact Extremities: No Edema Assessment/Plan Assessment: Patient is a 57-year-old female with significant past medical history of rheumatoid arthritis, diabetes, sleep apnea on CPAP, menopausal, presented with chief complaints of nausea and vomiting since last 24 hours; being treated for acute pancreatitis Mild acute pancreatitis - * Advance diet as tolerated. Currently taking ice chips. Will be switched to CLEARS for tonight, to be advanced based on patient tolerance * IV fluids normal saline 100 mL per hour. * Pain medication according to the pain scale -acetaminophen 1 gram IV for mild pain, Dilaudid 1 milligram every 6 P for moderate pain, and we will consider morphine if needed for severe pain. * Blood sugar charting every 6 hourly. * NovoLog according to the sliding scale. * Keep head end of the bed elevated. * Inj pantoprazole 40 mgs IV OD * Injection Zofran 4 milligrams every 6 P * We will repeat EKG in the morning * lipid profile WNL, lactic acid normal Obstructive sleep apnea on CPAP - * Continue CPAP over the night Type 2 diabetes- * Endocrine reccs appreciated. Will change levemir to 26 units BID * Blood sugar charting every 6 hourly. * NovoLog according to the sliding scale. Chronic medical condition-hypertension, hyperlipidemia, rheumatoid arthritis * Restarted home medications Morbid obesity - * We'll discuss about diet after recovery CODE STATUS-full code. Diet-advanced to CLEARS, depending on patients tolerance DVT prophylaxis-ALP S Problem List: 1. Pancreatitis 2. Abdominal pain Pain Ratin Pain Location: diffuse, abdomen Pain Goal: Pain 7 or less Pain Plan: pathway Tomorrow's Labs & Rationales: CBC - following white count
[2018-01-27 15:02] VITALS: BP 131/66
[2018-01-27 22:03] VITALS: BP 138/78
[2018-01-28 06:28] VITALS: BP 134/79
--- NOTE | 2018-01-28 07:00 | PN- Housestaff ---
Antwon Yeager 01/28/18 0659: Subjective Follow-up For: Pancreatitis Complaints: no complaints Subjective: Patient seen and examined at bedside. Patient states she feels much better today than yesterday. Patient states that pain has subsided, and that she enjoyed her liquid diet yesterday. Ready to advance to soft foods today. Anticipating discharge tomorrow, looking forward to it. Otherwise no complaints. Review of Systems Constitutional: Reports: no symptoms. EENTM: Reports: no symptoms. Cardiovascular: Reports: no symptoms. Respiratory: Reports: no symptoms. Gastrointestinal: Reports: no symptoms. Genitourinary: Reports: no symptoms. Musculoskeletal: Reports: no symptoms. Skin: Reports: no symptoms. Objective Last 24 Hrs of Vital Signs/I&O Vital Signs Date Time Temp Pulse Resp B/P B/P Pulse O2 O2 Flow FiO2 Mean Ox Delivery Rate 01/28 0951 90 134/79 01/28 0628 98.4 90 20 134/79 96 01/27 2203 98.5 97 18 138/78 93 Room Air 01/27 1502 98.9 98 20 131/66 97 Room Air Intake & Output 01/28 1600 01/28 0800 01/28 0000 Intake Total 800 800 Output Total Balance 800 800 Intake, IV 800 800 Number 1 Bowel Movements Physical Exam General Appearance: Alert, Oriented X3, Cooperative, No Acute Distress Skin: No Rashes, No Breakdown Skin Temp/Moisture Exam: Warm/Dry HEENT: Atraumatic, PERRLA, EOMI Neck: Supple, No JVD, No thryomegaly Lymphatic: Cervical nl Cardiovascular: Regular Rate, Normal S1, Normal S2, No Murmurs Lungs: Clear to Auscultation, Normal Air Movement Abdomen: Normal Bowel Sounds, Soft, slight tenderness to palpation diffusely Neurological: Normal Gait, Normal Speech, Strength at 5/5 X4 Ext, Normal Tone, Sensation Intact Extremities: No Clubbing, No Cyanosis Vascular: Normal Pulses, Pulses Symmetrical Current Medications: Current Medications Sig/Jayne Start time Last Medication Dose Route Stop Time Status Admin Acetaminophen 1,000 MG Q6P PRN 01/26 0300 AC 01/27 N/A 1 UNIT IV 0200 Atorvastatin Calcium 20 MG 1700 01/26 1700 AC 01/27 PO 1705 Hydromorphone HCl 1 MG Q6P PRN 01/28 1045 AC PO Hydromorphone HCl 1 MG Q6P PRN 01/26 0300 DC 01/28 IV 0614 Hydroxychloroquine 200 MG BID 01/28 2100 AC Sulfate PO Hydroxychloroquine 400 MG BID 01/26 09 DC 01/28 Sulfate PO 0951 Insulin Aspart 0 AT BEDTIME 01/28 2100 AC SC Insulin Aspart 0 TIDAC 01/28 1200 CAN SC Insulin Aspart 0 TIDAC 01/28 1200 AC 01/28 SC 1302 Insulin Aspart 0 Q4 01/26 1400 DC 01/28 SC 0609 Insulin Detemir 30 UNITS BID 01/28 2100 AC SC Insulin Detemir 26 UNITS BID 01/27 2100 DC 01/28 SC 0954 Lisinopril 5 MG DAILY 01/26 0900 AC 01/28 PO 0951 Ondansetron HCl 4 MG .STK-MED ONE 01/27 1854 DC IM 01/27 1855 Ondansetron HCl 4 MG Q6P PRN 01/26 0300 AC 01/28 IV 0613 Simethicone 80 MG Q6P PRN 01/27 0830 AC 01/27 PO 1241 Sodium Chloride 1,000 ML Q10H 01/26 0300 DC 01/28 IV 0614 Trimethobenzamide HCl 200 MG TIDPRN PRN 01/26 1500 AC 01/26 IM 1500 Last 24 Hrs of Lab/Luis Results Last 24 Hrs of Labs/Mics: Laboratory Tests 01/28/18 0839: CBC w Diff NO MAN DIFF REQ, RBC 4.60, MCV 76.9 L, MCH 25.2 L, MCHC 32.7 L, RDW 15.5 H, MPV 8.9, Gran % 76.8 H, Lymphocytes % 13.7 L, Monocytes % 6.9, Eosinophils % 2.3, Basophils % 0.3, Absolute Granulocytes 6.5, Absolute Lymphocytes 1.2, Absolute Monocytes 0.6, Absolute Eosinophils 0.2, Absolute Basophils 0 Assessment/Plan Assessment: Patient is a 57-year-old female with significant past medical history of rheumatoid arthritis, diabetes, sleep apnea on CPAP, menopausal, presented with chief complaints of nausea and vomiting since last 24 hours; being treated for acute pancreatitis Mild acute pancreatitis - * Advance diet as tolerated. Regular diet now, patient in charge of ordering soft foods * IV fluids normal saline 100 mL per hour - now DC'ed * Pain medication according to the pain scale -acetaminophen 1 gram IV for mild pain, Dilaudid 1 milligram every 6 P for moderate pain, and we will consider morphine if needed for severe pain. Convert all to PO as of today * Blood sugar charting every 6 hourly. * NovoLog according to the new sliding scale. Before Each Meal: Bolus Insulin: Novolog < 80 mg/dl: no coverage 80-100 mg/dl: 4 units 101-120 mg/dl: 4 units 121-150 mg/dl: 4 units 151-200 mg/dl: 6 units 201-250 mg/dl: 8 units 251-300 mg/dl: 10 units 301-350 mg/dl: 12 units 351-400 mg/dl: 14 units > 400 mg/dl: 16 units Bedtime: Bolus Insulin: Novolog < 80 mg/dl: no coverage 80-100 mg/dl: no coverage 101-120 mg/dl: no coverage 121-150 mg/dl: no coverage 151-200 mg/dl: no coverage 201-250 mg/dl: 2 units 251-300 mg/dl: 3 units 301-350 mg/dl: 4 units 351-400 mg/dl: 5 units > 400 mg/dl: 6 units * Keep head end of the bed elevated. * Inj pantoprazole 40 mgs IV OD * Injection Zofran 4 milligrams every 6 P * lipid profile WNL, lactic acid normal Obstructive sleep apnea on CPAP - * Continue CPAP over the night Type 2 diabetes- * Endocrine reccs appreciated. Will change levemir to 30 units BID * Blood sugar charting every 6 hourly. * NovoLog according to the NEW sliding scale; appreciate endocrinology recommendations Chronic medical condition-hypertension, hyperlipidemia, rheumatoid arthritis * Restarted home medications Morbid obesity - * We'll discuss about diet after recovery DVT Prophylaxis: ALPS Consistent carbohydrate 1 Patient is full code Problem List: 1. Pancreatitis 2. Abdominal pain Pain Ratin Pain Location: abdomen Pain Goal: pain free Pain Plan: acetaminophen, dilaudid Tomorrow's Labs & Rationales: none, likely dc'ed Discharge Plan Discharge Disposition: home Stable for Discharge? Yes Anticipated Discharge (Day): tomorrow VivianAkbarfede 01/28/18 1116: Attending MD Review Statement Attending Statement Attending MD Statement: examined this patient, discuss w/resident/PA/VENEER TAPER, agreed w/resident/PA/VENEER TAPER, discussed with family, reviewed EMR data (avail), discussed with nursing, discussed with case mgmt, reviewed images, amended to note Attending Assessment/Plan: Pateint with morbid obseity BMI 60.3. Diabetes mellitus insulin dependent pmh as above and was on victoza which is discontinued now comes with elevated lipase 800s. CT abd/pelvis suggestive of peripancreatic stranding and admitted with impression of pancreatitis. Patient had low grade fever on initial presentation and has remained afebrile in past 24 hrs. Patient is c/o pain in LUQ area which she decribes as sharp pain. GI consult. Endocrinology consulted and recommend to continue insulin. Monitor fingersticks closely and titrate insulin as per endocrinology. gi/dvt prophyalxis full code.
[2018-01-28 08:52] LABS: ABSOLUTE BASOPHIL COUNT 0 /CUMM (0.0-0.2); ABSOLUTE EOSINOPHIL COUNT 0.2 /CUMM (0.0-0.7); ABSOLUTE GRANULOCYTE CT 6.5 /CUMM (1.4-6.5); ABSOLUTE LYMPH COUNT 1.2 /CUMM (1.2-3.4); ABSOLUTE MONOCYTE COUNT 0.6 /CUMM (0.10-0.60); BASOPHIL % 0.3 % (0.0-2.0); EOSINOPHIL % 2.3 % (0-5); GRANULOCYTE % 76.8 % (42.2-75.2); HEMATOCRIT 35.3 % (37-47); MEAN CORPUSCULAR HGB 25.2 PG (27.0-31.0); MEAN CORPUSCULAR HGB CONC 32.7 G/DL (33.0-37.0); MEAN CORPUSCULAR VOLUME 76.9 FL (81.0-99.0); MEAN PLATELET VOLUME 8.9 FL (7.4-10.4); PLATELET COUNT 244 /CUMM (130-400); RBC DISTRIBUTION WIDTH 15.5 % (11.5-14.5); WHITE BLOOD CELL COUNT 8.5 /CUMM (4.8-10.8)
--- NOTE | 2018-01-28 11:00 | Patient Discharge Instructions ---
Discharge Instructions General Discharge Information Special Instructions: - Please follow up with hobbing machine operator Dr. Lopez within 1-2 weeks of discharge. - Please follow up with your primary care physician within 1-2 weeks of discharge. Inform your primary care physician of this admission to [facility]. - Continue your current medications per discharge instructions. - Please watch for these problems: Fever, Chills, Nausea, Vomiting, Shortness of Breath, Productive Cough, Chest Pain/Discomfort, Abdominal Pain, Active Bleeding or Bloody urine/stool. Diet Continue normal diet: Yes Recommended Diet: Diabetic Activity Full Activity/No Limits: Yes Acute Coronary Syndrome Inclusion Criteria At DC or during hospital stay patient has or had the following: ACS DIAGNOSIS No Discharge Core Measures Meds if any: Prescribed or Continued at Discharge Meds if any: NOT Prescribed or Continued at Discharge Congestive Heart Failure Inclusion Criteria At DC or during hospital stay patient has or had the following: CHF DIAGNOSIS No Discharge Core Measures Meds if any: Prescribed or Continued at Discharge Meds if any: NOT Prescribed or Continued at Discharge Cerebrovascular accident Inclusion Criteria At DC or during hospital stay patient has or had the following: CVA/TIA Diagnosis No Discharge Core Measures Meds if any: Prescribed or Continued at Discharge Meds if any: NOT Prescribed or Continued at Discharge Venous thromboembolism Inclusion Criteria VTE Diagnosis No VTE Type NONE VTE Confirmed by (Test) NONE Discharge Core Measures - Per Current guidelines, there needs to be overlap - treatment for the first 5 days of Warfarin therapy. - If discharged on Warfarin prior to 5 days of - overlap therapy, the patient will need to be - assessed for post discharge needs including - *Post discharge parental anticoagulation - *Warfarin and/or parental anticoagulation education - *Follow up date to check INR post discharge At least 5 days overlap therapy as Inpatient No Meds if any: Prescribed or Continued at Discharge Note: Overlap Therapy is Warfarin and Anticoagulant Meds if any: NOT Prescribed or Continued at Discharge
--- NOTE | 2018-01-28 11:26 | PN- Student ---
Subjective Subjective: Hospital day 2: Pt is a 57-year-old female with past medical history of rheumatoid arthritis, diabetes, sleep apnea on CPAP, morbid obesity presented with chief complaint of nausea and vomiting for the past 36 hours before she came to ED. Labs on admission showed significant elevated lipase 829, glucose 247, urine ketones and protein were positive and leukocytosis 15.2. CT abdomen showed mild stranding distal pancreas which suggested acute pancreatitis, hepatomegaly and diverticulosis. Patient was interviewed and examined at bed side. Patient stated she was much better compared to yesterday. Yesterday she had severe sharp left upper quadrant pain radiating to back. She also had 1 bowel movement bright yellow loose stool. This morning, patient had mild abdominal tenderness, no pain. Patient also had endocrine consult with Dr. Lopez yesterday on controlling her diabetics. Victoza was stopped because of its side effect of causing pancreatitis. Her diabetics regimen was switched and on experiemental with Dr. Lopez today. Objective Objective: Physical Exam: - VS is stable: T: 98.4F // P: 90 // RR: 20 // BP: 134/79 // SaO2: 96 - Heart: normal S1, S2, no addditional murmur nor gallop. - Lungs: CTA bilaterally. - Abdomen: mild tenderness on palpation, no guarding, no rigidity. - Extremities: no edema. Labs: - CBC with WBC went down to normal baseline at 8.5 Results Results: Laboratory Tests 01/28/18 0839: CBC w Diff NO MAN DIFF REQ, RBC 4.60, MCV 76.9 L, MCH 25.2 L, MCHC 32.7 L, RDW 15.5 H, MPV 8.9, Gran % 76.8 H, Lymphocytes % 13.7 L, Monocytes % 6.9, Eosinophils % 2.3, Basophils % 0.3, Absolute Granulocytes 6.5, Absolute Lymphocytes 1.2, Absolute Monocytes 0.6, Absolute Eosinophils 0.2, Absolute Basophils 0 01/27/18 0118: Urine Color ORANG H, Urine Clarity CLEAR, Urine pH 6.0, Ur Specific [place] >= 1.030, Urine Protein 30 H, Urine Ketones 40 H, Urine Nitrite NEG, Urine Bilirubin NEG@ICTO, Urine Urobilinogen 1.0, Ur Leukocyte Esterase NEG, Ur Microscopic SEDIMENT EXAMINED, Urine RBC RARE, Urine WBC 1-3 H, Ur Epithelial Cells FEW, Urine Bacteria FEW H, Urine Mucus MANY H, Urine Hemoglobin NEG, Urine Glucose NEG 01/26/18 0650: Anion Gap 12, Estimated GFR > 60, BUN/Creatinine Ratio 22.5, Hemoglobin A1c 9.1 H, TSH 1.680, Free T4 1.35, CBC w Diff NO MAN DIFF REQ, RBC 4.96, MCV 76.9 L, MCH 25.1 L, MCHC 32.7 L, RDW 15.1 H, MPV 9.2, Gran % 87.2 H, Lymphocytes % 6.1 L, Monocytes % 6.4, Eosinophils % 0.2, Basophils % 0.1, Absolute Granulocytes 12.7 H, Absolute Lymphocytes 0.9 L, Absolute Monocytes 0.9 H, Absolute Eosinophils 0, Absolute Basophils 0 01/25/18 2349: Anion Gap 15, Estimated GFR > 60, BUN/Creatinine Ratio 16.0, Glucose 247 H, Lactic Acid 1.2, Calcium 9.4, Total Bilirubin 0.8, Direct Bilirubin 0.1, AST 26, ALT 35, Alkaline Phosphatase 100, Troponin I < 0.01, Total Protein 6.9, Albumin 4.0, Triglycerides 67, Cholesterol 150, LDL Cholesterol, Calc 66, HDL Cholesterol 71 H, Cholesterol/HDL Ratio 2, Amylase 72, Lipase 829 H, CBC w Diff MAN DIFF ORDERED, RBC 5.28, MCV 76.6 L, MCH 25.4 L, MCHC 33.1, RDW 15.4 H, MPV 9.2, Gran % 89.6 H, Lymphocytes % 4.8 L, Monocytes % 5.3, Eosinophils % 0.3, Basophils % 0, Absolute Granulocytes 13.7 H, Absolute Lymphocytes 0.7 L, Absolute Monocytes 0.8 H, Absolute Eosinophils 0, Absolute Basophils 0, Platelet Estimate ADEQUATE, Normocytic RBCs VERIFIED, Normochromic RBCs VERIFIED , Serum Alcohol < 10.0 Microbiology 01/27 0207 BLOOD: Blood Culture - RES 01/27 0143 BLOOD: Blood Culture - RES 01/27 0118 URINE ROUT: Urine Culture - RES Assessment/Plan Assessment: Summary: 57-year-old female with past medical history of rheumatoid arthritis, diabetes, sleep apnea on CPAP, morbid obesity presented with chief complaint of nausea and vomiting for the past 36 hours before she came to ED. Labs on admission were significant for elevated lipase at 829, glucose 247. CT abdomen showed mild stranding distal pancreas which was consistent with acute pancreatitis. Problem list: - Acute pancreatitis. - Diabetics. - Rheumatoid arthritis. - LORI - Morbid obesity. Plan: 1. Acute pancreatitis: - DC IVF. - Switch IV Dilaudid to PO Dilaudid 1mg q6p prn. 2. Diabetics: - per recommended by Dr. Lopez on new regimen: Insulin Detemir 30 units BID sc + Insulin Aspart before meal and bed time as patient advance to carbohydrate consistent 1 diet. - stop Novolog q4h. - stop Victoza. 3. LORI: - Continue on CPAP. 4. Rheumatoid arthritis: - Continue home meds. 5. Morbid obesity: - Pt consider bariatric surgery. Will have patient follow up and discuss as out- patient to bariatric surgery department. - DVT prophylaxis with ALPs - Patient is full code.
--- NOTE | 2018-01-28 11:45 | PN- Diabetes ---
Assessment/Plan Diabetes Assessment: 57-year-old female with past medical history significant for rheumatoid arthritis, diabetes type 2, sleep apnea on CPAP, morbidly obese, presented with nausea and vomiting x 24 hours. Blood work showed lipase 829. She was diagnosed with DM type 2 in 2005 and has had hx of metformin intolerance. 6 years ago, she was put on insulin. Over past 3 years, she has been Levemir 50 units twice a day, Victoza 1.8 mg and 1.2 mg at dinner time. As per patient, her weight has been stable and her HbA1c has been less than 7%. She had history of cholecystectomy(1991; secondary to cholecystitis). She had family history of pancreatic cancer in her mother. She has tolerated clear liquid diet and most likely her diet will be advanced today Currently she is on Levemir 26 units twice a day, Novolog coverage every 4 hours. Her FSGs were 153, 157, 132 and 169. Plan: continue the current insulin regimen for now; if her diet will be advanced to consistent carbohydrates 1 diet, I will recommend: --- increase Levemir to 30 units twice a day; ---stop Novolog coverage every 4 hours; ---start Novolog coverage before meals and Novolog coverage at bedtime-- detail see the inpatient DM orders; ---monitor FSGs. will follow. Inpatient Diabetes Orders Before Each Meal: Bolus Insulin: Novolog < 80 mg/dl: no coverage 80-100 mg/dl: 4 units 101-120 mg/dl: 4 units 121-150 mg/dl: 4 units 151-200 mg/dl: 6 units 201-250 mg/dl: 8 units 251-300 mg/dl: 10 units 301-350 mg/dl: 12 units 351-400 mg/dl: 14 units > 400 mg/dl: 16 units Bedtime: Bolus Insulin: Novolog < 80 mg/dl: no coverage 80-100 mg/dl: no coverage 101-120 mg/dl: no coverage 121-150 mg/dl: no coverage 151-200 mg/dl: no coverage 201-250 mg/dl: 2 units 251-300 mg/dl: 3 units 301-350 mg/dl: 4 units 351-400 mg/dl: 5 units > 400 mg/dl: 6 units Subjective Subjective: She feels better this morning. Objective Last 24 Hrs of Vital Signs/I&O Vital Signs Date Time Temp Pulse Resp B/P B/P Pulse O2 O2 Flow FiO2 Mean Ox Delivery Rate 01/28 0951 90 134/79 01/28 0628 98.4 90 20 134/79 96 01/27 2203 98.5 97 18 138/78 93 Room Air 01/27 1502 98.9 98 20 131/66 97 Room Air Intake & Output 01/28 1600 01/28 0800 01/28 0000 Intake Total 800 800 Output Total Balance 800 800 Intake, IV 800 800 Number 1 Bowel Movements Findings Pertinent Lab/Luis Results: Laboratory Tests 01/28 0839 Hematology CBC w Diff NO MAN DIFF REQ WBC (4.8 - 10.8 /CUMM) 8.5 RBC (4.20 - 5.40 /CUMM) 4.60 Hgb (12.0 - 16.0 G/DL) 11.6 L Hct (37 - 47 %) 35.3 L MCV (81.0 - 99.0 FL) 76.9 L MCH (27.0 - 31.0 PG) 25.2 L MCHC (33.0 - 37.0 G/DL) 32.7 L RDW (11.5 - 14.5 %) 15.5 H Plt Count (130 - 400 /CUMM) 244 MPV (7.4 - 10.4 FL) 8.9 Gran % (42.2 - 75.2 %) 76.8 H Lymphocytes % (20.5 - 51.1 %) 13.7 L Monocytes % (1.7 - 9.3 %) 6.9 Eosinophils % (0 - 5 %) 2.3 Basophils % (0.0 - 2.0 %) 0.3 Absolute Granulocytes (1.4 - 6.5 /CUMM) 6.5 Absolute Lymphocytes (1.2 - 3.4 /CUMM) 1.2 Absolute Monocytes (0.10 - 0.60 /CUMM) 0.6 Absolute Eosinophils (0.0 - 0.7 /CUMM) 0.2 Absolute Basophils (0.0 - 0.2 /CUMM) 0
[2018-01-28 14:45] VITALS: BP 110/60
--- NOTE | 2018-01-28 18:05 | Cons- Gastroenterology ---
General Information and HPI Consulting Request Date of Consult: 01/28/18 Requested By: Vivian DE LA TORRE,Bernardo Reason for Consult: Abdominal pain, vomiting History of Present Illness: History of diarrhea, with negative evaluation 4 years ago. Since that time there has been improvement, with perhaps twice monthly episodes. In between bowel movements are normal. No usual abdominal pain or indigestion. The patient had the acute onset of nausea and vomiting 4 days ago. There were some loose stools. The patient was admitted when this persisted. Yesterday she developed severe upper abdominal pain radiating to her back. This was more mild this morning, and she was given a narcotic analgesic. The pain has resolved, and there is no longer nausea. She has tolerated a full liquid diet. Allergies/Medications Allergies: Coded Allergies: adhesive (REDNESS PER PT 01/25/18) morphine (SENSITIVE PER PT TO STOMACH 01/25/18) Home Med List: Albuterol Sulfate (Proair Hfa) 90 MCG HFA.AER.AD 2 PUF INH Q4-6 PRN PRN ASTHAMA (Reported) Budesonide (Pulmicort Flexhaler) 90 MCG AER.POW.BA 1 PUFF CLARE Q4 HRS NEEDED PRN ASTHAMA (Reported) Cetirizine HCl (Zyrtec) 10 MG TABLET 1 TAB PO DAILY ALLERGIES (Reported) Fish Oil/Borage/Flax/Om3,6,9#1 ([place] 3-6-9 1,200 MG Softgel) 1,200 MG CAPSULE 1 CAP PO DAILY SUPPLEMENTS (Reported) Hydroxychlorquine (Plaquenil) 200 MG TABLET 2 TAB PO QHS RA (Reported) Insulin Detemir (Levemir Flextouch) 100 UNIT/ML (3 ML) INSULN.PEN 50 UNITS SC BID DM (Reported) Liraglutide (Victoza 2-Gordo) 0.6 MG/0.1 ML (18 MG/3 ML) PEN.INJCTR 1.2 UNIT SC QPM DM (Reported) Liraglutide (Victoza 2-Gordo) 0.6 MG/0.1 ML (18 MG/3 ML) PEN.INJCTR 1.8 UNITS SC QAM DM (Reported) Pantoprazole Sodium 40 MG TABLET.DR 1 TAB PO DAILY GERD (Reported) Ramipril (Altace) 10 MG CAPSULE 1 CAP PO DAILY HTN (Reported) Rosuvastatin Calcium (Crestor) 10 MG TABLET 1 TAB PO DAILY HL (Reported) Current Medications: Current Medications Sig/Jayne Start time Last Medication Dose Route Stop Time Status Admin Acetaminophen 325 MG Q4P PRN 01/28 1345 AC PO Acetaminophen 1,000 MG Q6P PRN 01/26 0300 DC 01/27 N/A 1 UNIT IV 0200 Atorvastatin Calcium 20 MG 1700 01/26 1700 AC 01/28 PO 1645 Hydromorphone HCl 1 MG Q6P PRN 01/28 1045 AC PO Hydromorphone HCl 1 MG Q6P PRN 01/26 0300 DC 01/28 IV 0614 Hydroxychloroquine 200 MG BID 01/28 2100 AC Sulfate PO Hydroxychloroquine 400 MG BID 01/26 0900 DC 01/28 Sulfate PO 0951 Insulin Aspart 0 AT BEDTIME 01/28 2100 AC SC Insulin Aspart 0 TIDAC 01/28 1200 CAN SC Insulin Aspart 0 TIDAC 01/28 1200 AC 01/28 SC 1302 Insulin Aspart 0 Q4 01/26 1400 DC 01/28 SC 0609 Insulin Detemir 30 UNITS BID 01/28 2100 AC SC Insulin Detemir 26 UNITS BID 01/27 2100 DC 01/28 SC 0954 Lisinopril 5 MG DAILY 01/26 0900 AC 01/28 PO 0951 Loperamide HCl 2 MG ONE ONE 01/28 1545 DC 01/28 PO 01/28 1546 1645 Ondansetron HCl 4 MG .STK-MED ONE 01/28 0611 DC IM 01/28 0612 Ondansetron HCl 4 MG .STK-MED ONE 01/27 1854 DC IM 01/27 1855 Ondansetron HCl 4 MG Q6P PRN 01/26 0300 AC 01/28 IV 0613 Simethicone 80 MG Q6P PRN 01/27 0830 AC 01/27 PO 1241 Sodium Chloride 1,000 ML Q10H 01/26 0300 DC 01/28 IV 0614 Trimethobenzamide HCl 200 MG TIDPRN PRN 01/26 1500 AC 01/26 IM 1500 Past History Travel History Traveled to [place] past 21 day No Medical History Blood Transfusion Hx: No Neurological: migraine EENT: NONE Cardiovascular: hypertension Respiratory: bronchitis, obstructive sleep apnea, pneumonia, pulmonary hypertension Gastrointestinal: constipation, GERD Hepatic: NONE Renal: NONE Musculoskeletal: disk herniation Psychiatric: NONE Endocrine: diabetes Blood Disorders: anemia 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 Home Services at Home: None Smoking Status: Never Smoked ETOH Use: denies use Exam & Diagnostic Data Vital Signs and I&O Vital Signs Date Time Temp Pulse Resp B/P B/P Pulse O2 O2 Flow FiO2 Mean Ox Delivery Rate 01/28 1445 98.2 96 18 110/60 93 Room Air 01/28 0951 90 134/79 01/28 0628 98.4 90 20 134/79 96 01/27 2203 98.5 97 18 138/78 93 Room Air Intake & Output 01/28 1600 01/28 0400 01/27 1600 01/27 0400 01/26 1600 01/26 0400 Intake Total 2133 160 6992 400 1100 Output Total 450 560 Balance 1600 800 950 400 540 Intake, IV 926 253 4476 400 1100 Intake, Oral 800 0 0 0 Number 3 Bowel Movements Output, 10 Emesis Output, Urine 450 550 Patient 385 lb Weight Weight Reported by Patient Measurement Method Physical Exam: Abdomen obese, nontender Results Pertinent Lab Results: Laboratory Tests 01/28 01/27 0839 0118 Hematology CBC w Diff NO MAN DIFF REQ WBC (4.8 - 10.8 /CUMM) 8.5 RBC (4.20 - 5.40 /CUMM) 4.60 Hgb (12.0 - 16.0 G/DL) 11.6 L Hct (37 - 47 %) 35.3 L MCV (81.0 - 99.0 FL) 76.9 L MCH (27.0 - 31.0 PG) 25.2 L MCHC (33.0 - 37.0 G/DL) 32.7 L RDW (11.5 - 14.5 %) 15.5 H Plt Count (130 - 400 /CUMM) 244 MPV (7.4 - 10.4 FL) 8.9 Gran % (42.2 - 75.2 %) 76.8 H Lymphocytes % (20.5 - 51.1 %) 13.7 L Monocytes % (1.7 - 9.3 %) 6.9 Eosinophils % (0 - 5 %) 2.3 Basophils % (0.0 - 2.0 %) 0.3 Absolute Granulocytes (1.4 - 6.5 /CUMM) 6.5 Absolute Lymphocytes (1.2 - 3.4 /CUMM) 1.2 Absolute Monocytes (0.10 - 0.60 /CUMM) 0.6 Absolute Eosinophils (0.0 - 0.7 /CUMM) 0.2 Absolute Basophils (0.0 - 0.2 /CUMM) 0 Urines Urine Color (YEL,AMB,STR) ORANG H Urine Clarity (CLEAR) CLEAR Urine pH (5.0 - 8.0) 6.0 Ur Specific [place] (1.001 - 1.035) >= 1.030 Urine Protein (NEG,<30 MG/DL) 30 H Urine Ketones (NEG) 40 H Urine Nitrite (NEG) NEG Urine Bilirubin (NEG) NEG@ICTO Urine Urobilinogen (0.1 - 1.0 EU/dl) 1.0 Ur Leukocyte Esterase (NEG) NEG Ur Microscopic SEDIMENT EXAMINED Urine RBC (0 - 5 /HPF) RARE Urine WBC (0 - 2 /HPF) 1-3 H Ur Epithelial Cells (NONE,FEW) FEW Urine Bacteria (NEG/NONE) FEW H Urine Mucus (FEW,NONE) MANY H Urine Hemoglobin (NEG) NEG Urine Glucose (N MG/DL) NEG 01/26 01/25 0650 2349 Chemistry Sodium (137 - 145 mmol/L) 136 L 135 L Potassium (3.5 - 5.1 mmol/L) 4.5 4.5 Chloride (98 - 107 mmol/L) 98 95 L Carbon Dioxide (22 - 30 mmol/L) 25 25 Anion Gap (5 - 16) 12 15 BUN (7 - 17 mg/dL) 9 8 Creatinine (0.5 - 1.0 mg/dL) 0.4 L 0.5 Estimated GFR (>60 ml/min) > 60 > 60 BUN/Creatinine Ratio (7 - 25 %) 22.5 16.0 Glucose (65 - 99 mg/dL) 247 H Hemoglobin A1c (4.2 - 5.8 %) 9.1 H Lactic Acid (0.7 - 2.1 mmol/L) 1.2 Calcium (8.4 - 10.2 mg/dL) 9.4 Total Bilirubin (0.2 - 1.3 mg/dL) 0.8 Direct Bilirubin (< 0.4 mg/dL) 0.1 AST (14 - 36 U/L) 26 ALT (9 - 52 U/L) 35 Alkaline Phosphatase (<127 U/L) 100 Troponin I (< 0.11 ng/ml) < 0.01 Total Protein (6.3 - 8.2 g/dL) 6.9 Albumin (3.5 - 5.0 g/dL) 4.0 Triglycerides (<150 mg/dL) 67 Cholesterol (<200 MG/DL) 150 LDL Cholesterol, Calc (65 - 129 mg/dL) 66 HDL Cholesterol (40 - 60 mg/dL) 71 H Cholesterol/HDL Ratio (0.00 - 4.23 %) 2 Amylase (30 - 110 U/L) 72 Lipase (23 - 300 U/L) 829 H TSH (0.270 - 4.200 uIU/mL) 1.680 Free T4 (0.64 - 1.79 ng/dL) 1.35 Hematology CBC w Diff NO MAN DIFF REQ MAN DIFF ORDERED WBC (4.8 - 10.8 /CUMM) 14.5 H 15.2 H RBC (4.20 - 5.40 /CUMM) 4.96 5.28 Hgb (12.0 - 16.0 G/DL) 12.5 13.4 Hct (37 - 47 %) 38.1 40.4 MCV (81.0 - 99.0 FL) 76.9 L 76.6 L MCH (27.0 - 31.0 PG) 25.1 L 25.4 L MCHC (33.0 - 37.0 G/DL) 32.7 L 33.1 RDW (11.5 - 14.5 %) 15.1 H 15.4 H Plt Count (130 - 400 /CUMM) 252 258 MPV (7.4 - 10.4 FL) 9.2 9.2 Gran % (42.2 - 75.2 %) 87.2 H 89.6 H Lymphocytes % (20.5 - 51.1 %) 6.1 L 4.8 L Monocytes % (1.7 - 9.3 %) 6.4 5.3 Eosinophils % (0 - 5 %) 0.2 0.3 Basophils % (0.0 - 2.0 %) 0.1 0 Absolute Granulocytes (1.4 - 6.5 /CUMM) 12.7 H 13.7 H Absolute Lymphocytes (1.2 - 3.4 /CUMM) 0.9 L 0.7 L Absolute Monocytes (0.10 - 0.60 /CUMM) 0.9 H 0.8 H Absolute Eosinophils (0.0 - 0.7 /CUMM) 0 0 Absolute Basophils (0.0 - 0.2 /CUMM) 0 0 Platelet Estimate (ADEQUATE) ADEQUATE Normocytic RBCs VERIFIED Normochromic RBCs VERIFIED Toxicology Serum Alcohol (<10 MG/DL) < 10.0 Assessment/Plan Assessment/Recommendations: 1. Acute pancreatitis. This presented in an atypical fashion, with vomiting preceding the pain by days, minimal imaging findings, and very low/nonspecific elevation in lipase. Nevertheless, this is the most likely diagnosis. Although Victoza has been implicated as the cause, it is a rare and controversial cause of pancreatitis. The potential etiology includes biliary (retained CBD stones/ sludge), morphologic, idiopathic. There is no significant alcohol use, and no hypertriglyceridemia. The presentation is mild, and indeed the pain has resolved. The differential diagnosis includes acute gastroenteritis, penetrating ulcer (unlikely). The patient has a family history of pancreatic cancer. 2. Diarrhea. This was more of a problem years ago, and at this time is perhaps twice per month. In between there are normal bowel movements. Differential diagnosis is large, and include selective malabsorption, small intestinal bacterial overgrowth, medication, diabetic diarrhea/ neuropathy, etc. Further evaluation will be deferred to the outpatient setting. 3. Morbid obesity. Discussion has been held with the patient years ago about the potential benefit of bariatric surgery. This has been readdressed. Recommendations * Advanced to diabetic low-fat diet, and if remains pain-free may discharge * Victoza has been stopped by endocrinology. * Office visit to follow up symptoms * Outpatient MRCP and/or EUS to be considered, versus watchful waiting off of Victoza. (Certainly if gastric bypass is to be considered, would benefit from ascertaining a normal CBD/CHD beforehand). Copies To: Frida DE LA TORRE,Jarad; John DE LA TORRE,Shirin Consult Acknowledgment - Thank you for your consult request.
[2018-01-28 22:26] VITALS: BP 133/68
--- NOTE | 2018-01-29 06:53 | PN- Housestaff ---
Antwon Yeager 01/29/18 0652: Subjective Follow-up For: Acute pancreatitis Complaints: no complaints Subjective: She is seen and examined at the bedside. Patient feels better today, no longer having pain, nausea, vomiting, or diarrhea after taking loperamide. Patient is anticipating discharged home today. Review of Systems Constitutional: Reports: no symptoms. EENTM: Reports: no symptoms. Cardiovascular: Reports: no symptoms. Respiratory: Reports: no symptoms. Gastrointestinal: Reports: no symptoms. Genitourinary: Reports: no symptoms. Musculoskeletal: Reports: no symptoms. Skin: Reports: no symptoms. Objective Last 24 Hrs of Vital Signs/I&O Vital Signs Date Time Temp Pulse Resp B/P B/P Pulse O2 O2 Flow FiO2 Mean Ox Delivery Rate 01/29 0801 87 142/87 01/29 0655 98.8 87 20 142/87 96 01/28 2226 98.6 94 20 133/68 95 Room Air 01/28 1445 98.2 96 18 110/60 93 Room Air Intake & Output 01/29 1600 01/29 0800 01/29 0000 Intake Total 800 240 840 Output Total Balance 800 240 840 Intake, Oral 800 240 840 Number 1 Bowel Movements Physical Exam General Appearance: Alert, Oriented X3, Cooperative, No Acute Distress Skin: No Rashes, No Breakdown Skin Temp/Moisture Exam: Warm/Dry HEENT: Atraumatic, PERRLA, EOMI Neck: Supple, No JVD, No thryomegaly Lymphatic: Axillary nl, Cervical nl Lungs: Clear to Auscultation, Normal Air Movement Abdomen: Soft, No Tenderness, No Hepatospenomegaly Neurological: Normal Speech, Strength at 5/5 X4 Ext, Normal Tone, Sensation Intact Extremities: No Clubbing, No Cyanosis, No Edema Vascular: Normal Pulses, Pulses Symmetrical Current Medications: Current Medications Sig/Jayne Start time Last Medication Dose Route Stop Time Status Admin Acetaminophen 325 MG Q4P PRN 01/28 1345 AC PO Acetaminophen 1,000 MG Q6P PRN 01/26 0300 DC 01/27 N/A 1 UNIT IV 0200 Atorvastatin Calcium 20 MG 1700 01/26 1700 AC 01/28 PO 1645 Hydromorphone HCl 1 MG Q6P PRN 01/28 1045 AC PO Hydromorphone HCl 1 MG Q6P PRN 01/26 0300 DC 01/28 IV 0614 Hydroxychloroquine 200 MG BID 01/28 2100 AC 01/29 Sulfate PO 0801 Insulin Aspart 0 AT BEDTIME 01/28 2100 AC 01/28 SC 2039 Insulin Aspart 0 TIDAC 01/28 1200 AC 01/29 SC 0801 Insulin Detemir 30 UNITS BID 01/28 2100 AC 01/29 SC 0801 Lisinopril 5 MG DAILY 01/26 0900 AC 01/29 PO 0801 Loperamide HCl 2 MG ONE ONE 01/28 2200 DC PO 01/28 2201 Loperamide HCl 2 MG ONE ONE 01/28 1545 DC 01/28 PO 01/28 1546 1645 Ondansetron HCl 4 MG Q6P PRN 01/26 0300 AC 01/28 IV 0613 Simethicone 80 MG Q6P PRN 01/27 0830 AC 01/27 PO 1241 Sodium Chloride 1,000 ML Q10H 01/26 0300 DC 01/28 IV 0614 Trimethobenzamide HCl 200 MG TIDPRN PRN 01/26 1500 AC 01/26 IM 1500 Assessment/Plan Assessment: Assessment: Patient is a 57-year-old female with significant past medical history of rheumatoid arthritis, diabetes, sleep apnea on CPAP, menopausal, presented with chief complaints of nausea and vomiting since last 24 hours; being treated for acute pancreatitis. Planned discharge today. Mild acute pancreatitis - * Advance diet as tolerated. Regular diet now, patient in charge of ordering soft foods * IV fluids normal saline 100 mL per hour - now DC'ed * Pain medication according to the pain scale -acetaminophen 1 gram IV for mild pain, Dilaudid 1 milligram every 6 P for moderate pain, and we will consider morphine if needed for severe pain. converted to PO now * Blood sugar charting every 6 hourly. * NovoLog according to the new sliding scale. Before Each Meal: Bolus Insulin: Novolog < 80 mg/dl: no coverage 80-100 mg/dl: 4 units 101-120 mg/dl: 4 units 121-150 mg/dl: 4 units 151-200 mg/dl: 6 units 201-250 mg/dl: 8 units 251-300 mg/dl: 10 units 301-350 mg/dl: 12 units 351-400 mg/dl: 14 units > 400 mg/dl: 16 units Bedtime: Bolus Insulin: Novolog < 80 mg/dl: no coverage 80-100 mg/dl: no coverage 101-120 mg/dl: no coverage 121-150 mg/dl: no coverage 151-200 mg/dl: no coverage 201-250 mg/dl: 2 units 251-300 mg/dl: 3 units 301-350 mg/dl: 4 units 351-400 mg/dl: 5 units > 400 mg/dl: 6 units * Keep head end of the bed elevated. * Inj pantoprazole 40 mgs IV OD converted backto PO * Injection Zofran 4 milligrams every 6 P - dc'ed in anticipationof discharge * lipid profile WNL, lactic acid normal Obstructive sleep apnea on CPAP - * Continue CPAP over the night Type 2 diabetes- * Endocrine recs appreciated. Will change levemir to 30 units BID * Blood sugar charting every 6 hourly. * NovoLog according to the NEW sliding scale; appreciate endocrinology recommendations Chronic medical condition-hypertension, hyperlipidemia, rheumatoid arthritis * Restarted home medications Morbid obesity - * We'll discuss about diet after recovery from acute pancreatitis DVT Prophylaxis: ALPS Consistent carbohydrate 1 Patient is full code Problem List: 1. Pancreatitis 2. Morbid obesity due to excess calories Pain Ratin Pain Location: none Pain Goal: Remain pain free Pain Plan: dilaudid - patient has been refusing. Tomorrow's Labs & Rationales: none, planned discharge Discharge Plan Discharge Disposition: home Stable for Discharge? Yes Anticipated Discharge (Day): today [place] 01/29/18 1057: Attending MD Review Statement Attending Statement Attending MD Statement: examined this patient, discuss w/resident/PA/PER DIEM NURSE, agreed w/resident/PA/PER DIEM NURSE, discussed with family, reviewed EMR data (avail), discussed with nursing, discussed with case mgmt, reviewed images, amended to note Attending Assessment/Plan: Patient with improvement in her clinical status. She is willing to go home today. GI appreciated and continue to follow up outpatient in 3-4 weeks. Pateint is on insulin therapy and follow up with endocrinology in 1-2 weeks of discharge. Advised dietary and lifestyle modifications. Follow up with PCP in 1 week of discharge.
[2018-01-29 06:55] VITALS: BP 142/87
[2018-01-29 08:01] VITALS: BP 142/87
--- NOTE | 2018-01-29 08:06 | PN- Student ---
Subjective Subjective: Hospital day 3: Patient is a 57-year-old female with past medical history of rheumatoid arthritis, diabetes, sleep apnea on CPAP, morbid obesity presented with chief complaint of nausea and vomiting for the past 36 hours before she came to ED. Labs on admission showed significant elevated lipase 829, glucose 247, urine ketones and protein were positive and leukocytosis 15.2. CT abdomen showed mild stranding distal pancreas which suggested acute pancreatitis, hepatomegaly and diverticulosis. Patient was interviewed and examined at bed side. Today patient stated that she was better and more comfortable. She enjoyed the dinner. Patient stated there was no pain, just mild tender and swelling on her left upper quadrant. Patient was given 1 dose 2mg of Imodium yesterday night due to her loose bright yellow stool. Her blood sugar was trending down, stated 163 this morning. She anticipated for discharge today. Objective Objective: Physcial exam: - Vital sign is stable: T:98.8F // P: 87 // RR: 20 // BP: 142/87 // SpO2: 96% - Patient was oriented to Time, Person and Place, well-nourished, comfortable and no distress. - Heart: normal heart sound, no additional murmur nor gallop. - Lungs: CTA bilaterally. - Abdomen: mild tenderness upon palpation on left upper quadrant. - Extremities: no edema. Results Results: Laboratory Tests 01/28/18 0839: CBC w Diff NO MAN DIFF REQ, RBC 4.60, MCV 76.9 L, MCH 25.2 L, MCHC 32.7 L, RDW 15.5 H, MPV 8.9, Gran % 76.8 H, Lymphocytes % 13.7 L, Monocytes % 6.9, Eosinophils % 2.3, Basophils % 0.3, Absolute Granulocytes 6.5, Absolute Lymphocytes 1.2, Absolute Monocytes 0.6, Absolute Eosinophils 0.2, Absolute Basophils 0 01/27/18 0118: Urine Color ORANG H, Urine Clarity CLEAR, Urine pH 6.0, Ur Specific [place] >= 1.030, Urine Protein 30 H, Urine Ketones 40 H, Urine Nitrite NEG, Urine Bilirubin NEG@ICTO, Urine Urobilinogen 1.0, Ur Leukocyte Esterase NEG, Ur Microscopic SEDIMENT EXAMINED, Urine RBC RARE, Urine WBC 1-3 H, Ur Epithelial Cells FEW, Urine Bacteria FEW H, Urine Mucus MANY H, Urine Hemoglobin NEG, Urine Glucose NEG Microbiology 01/27 0207 BLOOD: Blood Culture - RES 01/27 0143 BLOOD: Blood Culture - RES 01/27 0118 URINE ROUT: Urine Culture - RES Assessment/Plan Assessment: Summary: 57-year-old female with past medical history of rheumatoid arthritis, diabetes, sleep apnea on CPAP, morbid obesity presented with chief complaint of nausea and vomiting for the past 36 hours before she came to ED. Labs on admission were significant for elevated lipase at 829, glucose 247, positive urine ketones and protein. CT abdomen showed mild stranding distal pancreas which was consistent with acute pancreatitis. Problem list: - Acute pancreatitis. - Diabetics. - Rheumatoid arthritis. - LORI - Morbid obesity. Plan: Plan is discharge today. - Patient will go home with diabetics regimen: Insulin Detemir 30 units BID sc + Insulin Aspart before meal and bed time. - Continue other home meds, stop Victoza. - Patient education on diabetics regimen, diet and exercise. - Outpatient procedure: ERCP before doing bariatric surgery. DVT prophylaxis with Alps. Patient is full code.
[2018-01-29] MEDS ORDERED: LEVEMIR100 UNIT/1 SC ×3 (08:10→08:45)
[2018-01-29] MEDS ORDERED: NOVOLOG100 UNIT/2 SC ×6 (08:10→08:45)
--- NOTE | 2018-01-29 09:34 | PN- Diabetes ---
Assessment/Plan Diabetes Assessment: 57-year-old female with past medical history significant for rheumatoid arthritis, diabetes type 2, sleep apnea on CPAP, morbidly obese, presented with nausea and vomiting x 24 hours. Blood work showed lipase 829. She was diagnosed with DM type 2 in 2005 and has had hx of metformin intolerance. 6 years ago, she was put on insulin. Over past 3 years, she has been Levemir 50 units twice a day, Victoza 1.8 mg am and 1.2 mg at dinner time. As per patient, her weight has been stable and her HbA1c has been less than 7%. She had history of cholecystectomy(1991; secondary to cholecystitis). She had family history of pancreatic cancer in her mother. She has tolerated the diet and most likely she is going home today. Currently she is on Levemir 30 units twice a day, Novolog coverage before meals and Novolog coverage at bedtime. Bolus Insulin before meals: Novolog < 80 mg/dl: no coverage 80-100 mg/dl: 4 units 101-120 mg/dl: 4 units 121-150 mg/dl: 4 units 151-200 mg/dl: 6 units 201-250 mg/dl: 8 units 251-300 mg/dl: 10 units 301-350 mg/dl: 12 units 351-400 mg/dl: 14 units > 400 mg/dl: 16 units Bedtime: Bolus Insulin: Novolog < 80 mg/dl: no coverage 80-100 mg/dl: no coverage 101-120 mg/dl: no coverage 121-150 mg/dl: no coverage 151-200 mg/dl: no coverage 201-250 mg/dl: 2 units 251-300 mg/dl: 3 units 301-350 mg/dl: 4 units 351-400 mg/dl: 5 units > 400 mg/dl: 6 units Her FSGs were 196, 148, 181 and 163. Plan: ---continue the current insulin regimen for now; ---if she is medically stable for discharge, the discharge plan will be the same insulin regimen as inpatient-- detail see the above. ---f/u in office after discharge. Subjective Subjective: She feels much better. Objective Last 24 Hrs of Vital Signs/I&O Vital Signs Date Time Temp Pulse Resp B/P B/P Pulse O2 O2 Flow FiO2 Mean Ox Delivery Rate 01/29 0801 87 142/87 01/29 0655 98.8 87 20 142/87 96 01/28 2226 98.6 94 20 133/68 95 Room Air 01/28 1445 98.2 96 18 110/60 93 Room Air 01/28 0951 90 134/79 Intake & Output 01/29 1600 01/29 0800 01/29 0000 Intake Total 800 240 840 Output Total Balance 800 240 840 Intake, Oral 800 240 840 Number 1 Bowel Movements
--- NOTE | 2018-01-29 10:49 | Discharge Summary ---
Hospital Course Allergies: Coded Allergies: adhesive (REDNESS PER PT 01/25/18) morphine (SENSITIVE PER PT TO STOMACH 01/25/18) Discharge Instructions Medications at Discharge Discharge Medications: Stop taking the following medications: Liraglutide (Victoza 2-Gordo) 0.6 MG/0.1 ML (18 MG/3 ML) PEN.INJCTR SC Every night Qty = 1 Liraglutide (Victoza 2-Gordo) 0.6 MG/0.1 ML (18 MG/3 ML) PEN.INJCTR SC Every Morning Qty = 1 Insulin Detemir (Levemir Flextouch) 100 UNIT/ML (3 ML) INSULN.PEN SC TWICE DAILY Qty = 1 Continue taking these medications: Rosuvastatin Calcium (Crestor) 10 MG TABLET 1 Tablet ORAL DAILY Qty = 30 Comments: Last Taken: 01/26/18 Time: 4:45 PM (LIPITOR 20MG PO GIVEN) Ramipril (Altace) 10 MG CAPSULE 1 Capsule ORAL DAILY Qty = 30 Comments: NOT GIVEN IN HOSPITAL Pantoprazole Sodium (Pantoprazole Sodium) 40 MG TABLET.DR 1 Tablet ORAL DAILY Qty = 30 Comments: NOT GIVEN IN HOSPITAL Hydroxychlorquine (Plaquenil) 200 MG TABLET 2 Tablet ORAL TAKE AT BEDTIME Qty = 60 Comments: Last Taken: 01/29/18 Time: 8:00 AM (1 TAB GIVEN) Cetirizine HCl (Zyrtec) 10 MG TABLET 1 Tablet ORAL DAILY Qty = 30 Comments: NOT GIVEN IN HOSPITAL Albuterol Sulfate (Proair Hfa) 90 MCG HFA.AER.AD 2 Puff Inhale through mouth EVERY 4-6 HOURS NEEDED as needed for ASTHAMA Qty = 30 Comments: NOT GIVEN IN HOSPITAL Budesonide (Pulmicort Flexhaler) 90 MCG AER.POW.BA 1 PUFF In the nose EVERY 4 HOURS NEEDED as needed for ASTHAMA Qty = 1 Comments: NOT GIVEN IN HOSPITAL Fish Oil/Borage/Flax/Om3,6,9#1 (Quinn 3-6-9 1,200 MG Softgel) 1,200 MG CAPSULE 1 Capsule ORAL DAILY Qty = 30 Comments: NOT GIVEN IN HOSPITAL Start taking the following new medications: Insulin Aspart (Novolog) 100 UNIT/ML VIAL 0 Units SC 3 TIMES DAILY BEFORE MEALS Qty = 30 No Refills Instructions: <80: 0 UNITS. 80-150: 4 UNITS 151-200: 6 UNITS 201-250: 8 UNITS 251-300: 10 UNITS 301-350: 12 UNITS 351-400: 14 UNITS >400: 16 UNITS Comments: Last Taken: 01/29/18 Time: 8:00 AM Insulin Aspart (Novolog) 100 UNIT/ML VIAL 0 Units SC AT BEDTIME Qty = 30 No Refills Instructions: 200 mg/dl no additional units 201-250 mg/dl 2 units 251-300 mg/dl 3 units 301-350 mg/dl 4 units 351-400 mg/dl 5 units >400 mg/dl 6 units Comments: Last Taken: 01/28/18 Time: 8:30 PM Insulin Detemir (Levemir) 100 UNIT/ML VIAL 30 Units SC TWICE DAILY Qty = 30 No Refills Comments: Last Taken: 01/29/18 Time: 8:00 AM Attending MD Review Statement Documenting Attending: Vivian DE LA TORRE,Bernardo Other Findings: Patient with improvement in her clinical status. She is willing to go home today. GI appreciated and continue to follow up outpatient in 3-4 weeks. Pateint is on insulin therapy and follow up with endocrinology in 1-2 weeks of discharge. Advised dietary and lifestyle modifications. Follow up with PCP in 1 week of discharge.
== END 2018-01-29 11:28 | DRG 439 ==
LOC: ERH 23:12 → 2NB 01-26 01:37 → ERHI 01-26 01:37 → ENRESERV 01-26 02:12 → 2NB 01-26 03:28 → ENPENDDIS 01-29 10:13 → 2NB 01-29 11:28
PROVIDERS: Internal Medicine Adolescent Medicine; Pediatrics
DX: K85.90 Acute pancreatitis without necrosis or infection, unspecified (principal); Z68.44 Body mass index [BMI] 60.0-69.9, adult; E66.01 Morbid (severe) obesity due to excess calories; M06.9 Rheumatoid arthritis, unspecified; G47.33 Obstructive sleep apnea (adult) (pediatric); E11.21 Type 2 diabetes mellitus with diabetic nephropathy; K21.9 Gastro-esophageal reflux disease without esophagitis; Z79.4 Long term (current) use of insulin; Z96.653 Presence of artificial knee joint, bilateral; Z90.49 Acquired absence of other specified parts of digestive tract; Z98.1 Arthrodesis status; I27.20 Pulmonary hypertension, unspecified; E78.5 Hyperlipidemia, unspecified; Z79.51 Long term (current) use of inhaled steroids
CPT/HCPCS: 2NBP; 36415; 36592; 74176; 81001; 82436; 87040; 87086; 93005; 93010; 96361; 96374; 96375; G0480; J0131; J2405; J3250